=== PATIENT | female | born 1940 | race Caucasian/White ===

== ENCOUNTER 2016-12-07 14:25 | Inpatient (IN) | payer MEDICARE, OTHER ==
[~2016-12-07] VITALS: Ht 170.2 cm; Wt 71.0 kg
[2016-12-07] VITALS (10 sets, daily range): BP systolic 130–227; BP diastolic 67–99; PULSE 60–68; RESP 12–24; TEMP 98.1; O2SAT 95–100
[~2016-12-07 14:25] MED LIST: APIX5TAB PO; DILTCD240 PO; FURO20 PO; LEVO.1 PO; METO100T9 PO; NORC7.5T PO; PRIL40CA PO; ROSU10 PO; SYNT88TA PO; ZOFR4TAB3 SL
[2016-12-07 15:46] LABS: AUTOMATED NEUTROPHIL # 4.1 TH/MM3 (1.8-7.7); BASOPHIL % 0.6 % (0.0-2.0); EOSINOPHIL # 0.2 TH/MM3 (0-0.4); EOSINOPHIL % 3.8 % (0.0-4.0); HEMATOCRIT 39.4 % (35.0-46.0); HEMO FLAGS DIFF FINAL; LYMPH % 12.2 % (9.0-44.0); LYMPHOCYTE # 0.7 TH/MM3 (1.0-4.8); MEAN CELL VOLUME 89.1 FL (80.0-100.0); MEAN CORPUSCULAR HEMOGLOBIN 30.3 PG (27.0-34.0); MONO % 8.7 % (0.0-8.0); NEUT % 74.7 % (16.0-70.0); PLATELET COUNT 172 TH/MM3 (150-450); RED BLOOD COUNT 4.43 MIL/MM3 (4.00-5.30); RED CELL DISTRIBUTION WIDTH 14.2 % (11.6-17.2); WHITE BLOOD COUNT 5.5 TH/MM3 (4.0-11.0)
[2016-12-07 16:10] LABS: ANION GAP 9 MEQ/L (5-15); BICARBONATE 25.4 MEQ/L (21.0-32.0); BLOOD UREA NITROGEN 18 MG/DL (7-18); CHLORIDE 106 MEQ/L (98-107); GLOMERULAR FILTRATION RATE 47 ML/MIN (>89); POTASSIUM 3.9 MEQ/L (3.5-5.1); SODIUM (NA) 140 MEQ/L (136-145)
--- NOTE | 2016-12-07 16:13 | RADRPT ---
EXAM DATE/TIME: 12/07/2016 16:05 [facility] COMPARISON: No previous studies available for comparison. INDICATIONS : Chest pain and shortness of breath for the past few days. MEDICAL HISTORY : Hypertension. SURGICAL HISTORY : Pacemaker. Ablation. ENCOUNTER: Initial ACUITY: 3 days PAIN SCORE: 10/10 LOCATION: Bilateral chest FINDINGS: A left subclavian dual lead pacemaker has its tips in the right atrium and right ventricle. There is no pneumothorax. The heart is normal in size and appearance. The pulmonary vascular pattern is norm al. The lungs are clear. Degenerative changes and scoliosis of the thoracic spine are noted. CONCLUSION: 1. No acute cardiopulmonary disease. 2. Degenerative changes and scoliosis of the thoracolumbar spine. Deion Rivera MD on December 07, 2016 at 16:09 Board Certified Radiologist. This report was verified electronically.
[2016-12-07 16:16] LABS: CREATINE KINASE 85 U/L (26-192)
[2016-12-07] MEDS ORDERED: PANTOPRAZOLE SODIUM 40 MG VIAL IV PUSH ONE (19:30)
[2016-12-07] MEDS ORDERED: ASPIRIN 81 MG CHEW TAB CHEW ONE (19:30)
[2016-12-07] MEDS ORDERED: ONDANSETRON HCL 4 MG/2 ML VIAL IV PUSH ONE (19:30)
[2016-12-07] MEDS ORDERED: SODIUM CHLORID 0.9% 500 ML INJ 500 ML IV ONE (19:30)
[2016-12-07] MEDS ORDERED: NITROGLYCERIN 2% OINT 1 GM PACKET TOPICAL ONE (19:30)
[2016-12-07] MEDS ORDERED: NITROGLYCERIN 0.4 MG SL 25 TABS/BTL SL PRN (19:30)
--- NOTE | 2016-12-07 19:43 | PD ---
HPI Chief Complaint: Chest Pain Time Seen by Provider: 19:18 Travel History International Travel<30 days: No Contact w/Intl Traveler<30days: No Traveled to known affect area: No History of Present Illness HPI The patient is a 76 year old female who presents to the [facility] emergency department with a history of chest pain that began on Tuesday in the left side of her chest and is reportedly a dull aching sensation. The patient reports that it has been associated with shortness of breath and nausea. She reports that she vomited times one and then also brought up acid reflux. The patient reports that the symptoms then resolved, therefore she thought that these symptoms were related to her worsening acid reflux. She reports that she has a history of acid reflux that has been gradually worsening over the last 2 months. She has been taking pantoprazole for it. She reports that her GI is . The patient reports that her last endoscopy was last year. The patient denies having any blood in her stool or black or tarry stools. The patient additionally reports that she does have a history of atrial fibrillation and is status post pacemaker placement. She is on Eliquis for anticoagulation. She denies any history of coronary artery disease. She reports that she has not had any stents or angioplasty done previously. Her last stress test was 2 years ago. 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 The patient reports that her symptoms again recurred at 1 PM today and have been much worse. She again has had nausea and vomiting, however the symptoms have been persistent. She reports having associated shortness of breath and occasional cough. She denies having any new lower extremity edema. She denies having any prior history of congestive heart failure. She denies having any diarrhea. She reports that she had chills on Tuesday and thought she may have a fever but she never checked her temperature. The patient denies any history of neck pain, abdominal pain, diarrhea, urinary symptoms, or neurologic symptoms. [facility] Past Medical History Narrative Medical The patient's past medical history is significant for chronic back pain, history of atrial fibrillation status post pacemaker placement, history of asthma, history of acid reflux, history of hyperthyroidism status post partial thyroidectomy and radiation treatment to her thyroid, history of chronic renal insufficiency, history of hypertension. Blood Disorders: No Heart Rhythm Problems: Yes (states was related to thyroid problems) Cancer: No Cardiovascular Problems: Yes (PACEMAKER) Chest Pain: No COPD: Yes Coronary Artery Disease: Yes Diabetes: No Diminished Hearing: No Endocrine: Yes Gastrointestinal Disorders: No GERD: Yes Glaucoma: No Genitourinary: No Hepatitis: No Hiatal Hernia: Yes Hypertension: Yes Immune Disorder: No Implanted Vascular Access Dvce: No Musculoskeletal: Yes (OSTEOPENA ) Neurologic: No Psychiatric: No Reproductive: No Respiratory: No Integumentary: No Radiation Therapy: Yes (for thyroid) Thyroid Disease: Yes Menopausal: Yes Past Surgical History Narrative Surgical The patient's past surgical history is significant for a partial thyroidectomy, appendectomy, hysterectomy, pacemaker placement. Abdominal Surgery: Yes (APPENDIX REMOVED WITH OVARY REMOVED ) Appendectomy: Yes Cardiac Surgery: Yes (PACE MAKER) Ear Surgery: No Endocrine Surgery: Yes (thyroid) Eye Surgery: No Genitourinary Surgery: No Gynecologic Surgery: Yes (PARTIAL HYSTERECTOMY ) Hysterectomy: Yes Neurologic Surgery: No Oral Surgery: No Pacemaker: Yes (INSERTED JANUARY 26 FOT TEMPORARY, FOR PERMANENT) Thoracic Surgery: Yes (PACEMAKER) Other Surgery: Yes (THYROID,HYSTERECTOMY,APPENDIX, CARDIAC ABLATION) Social History Alcohol Use: No Tobacco Use: No Substance Use: No Allergies-Medications (Allergen,Severity, Reaction): Coded Allergies: Keflex (Verified Allergy, Severe, Nausea/Vomiting, 12/07/16) Sulfa (Verified Allergy, Severe, rash, 12/07/16) Reported Meds & Prescriptions Reported Meds & Active Scripts Active Reported Synthroid (Levothyroxine Sodium) 88 Mcg Tab 88 Mcg PO DAILY Pantoprazole (Pantoprazole Sodium) 40 Mg Tab 40 Mg PO DAILY Metoprolol Succinate ER 24 HR (Metoprolol Succinate) 50 Mg Tab 50 Mg PO DAILY Hydrocodone-Acetaminophen 7.5-325 mg Tab 1 Tab PO Q6H PRN Furosemide 20 Mg Tab 20 Mg PO BID Flecainide (Flecainide Acetate) 50 Mg Tab 50 Mg PO BID Eliquis (Apixaban) 5 Mg Tab 5 Mg PO BID Diltiazem CD 24 HR 240 Mg Caper 240 Mg PO DAILY Crestor (Rosuvastatin Calcium) 40 Mg Tab 40 Mg PO DAILY Review of Systems Except as stated in HPI: all other systems reviewed are Neg General / Constitutional: No: Fever Eyes: No: Visual changes HENT: No: Headaches Cardiovascular: Positive: Chest Pain or Discomfort, Dyspnea on exertion Respiratory: Positive: Cough, Shortness of Breath Gastrointestinal: Positive: Nausea, Vomiting, Indigestion, No: Diarrhea, Abdominal Pain, Loss of Appetite Genitourinary: No: Urgency, Frequency, Dysuria Musculoskeletal: No: Pain Skin: No Rash Neurologic: No: Weakness, Focal Abnormalities, Change in Mentation, Slurred Speech, Sensory Disturbance Psychiatric: No: Depression Endocrine: No: Polydipsia Hematologic/Lymphatic: No: Easy Bruising Physical Exam Narrative General: The patient is a well-developed well-nourished female, uncomfortable appearing on examination, initial blood pressure is elevated at 210/100. Head and Neck exam: Head is normocephalic atraumatic. Eyes: Pupils are equal round and reactive to light. Nose: Midline septum with pink mucous membranes Mouth: Dentition unremarkable. Moist mucus membranes. Posterior oropharynx is not erythematous. No tonsillar hypertrophy. Uvula midline. Airway patent. Neck: No palpable lymphadenopathy. No nuchal rigidity. No thyromegaly. Cardiovascular: Regular rate and rhythm without murmurs, gallops, or rubs. No pulse deficit to the extremities on simultaneous auscultation and palpation of her radial arteries. Lungs: Clear to auscultation bilaterally. No wheezes, rhonchi, or rales. Abdomen: Soft, with midepigastric abdominal discomfort on palpation. No other tenderness on palpation of the other 4 quadrants of the abdomen.. No guarding, rebound, or rigidity. Normal bowel sounds are audible. No tenderness on palpation of McBurney's point. Extremities: No clubbing, cyanosis, or edema. 2+ pulses in all 4 extremities. No calf tenderness on palpation. Back: No spinous process tenderness to palpation. Right-sided CVA tenderness on palpation is noted. Neurologic Exam: Grossly nonfocal. Skin Exam: No rash noted. Intact skin that is warm and dry. Data Data Last Documented VS Vital Signs Date Time Temp Pulse Resp B/P Pulse Ox O2 Delivery O2 Flow Rate FiO2 12/07/16 22:00 60 12 154/67 99 Nasal Cannula 2 12/07/16 14:27 98.1 Orders Electrocardiogram (12/07/16 15:01) Complete Blood Count With Diff (12/07/16 15:01) Basic Metabolic Panel (Bmp) (12/07/16 15:01) Ckmb (Isoenzyme) Profile (12/07/16 15:01) Troponin I (12/07/16 15:01) Chest, Single Ap (12/07/16 15:55) B-Type Natriuretic Peptide (12/07/16 19:30) Hepatic Functional Panel (12/07/16 19:30) Lipase (12/07/16 19:30) D-Dimer (12/07/16 19:30) Iv Access Insert/Monitor (12/07/16 19:30) Ecg Monitoring (12/07/16 19:30) Oximetry (12/07/16 19:30) Creatine Kinase (Cpk) (12/07/16 19:30) Ckmb (Isoenzyme) Profile (12/07/16 19:30) Troponin I (12/07/16 19:30) Aspirin Chew (Aspirin Chew) (12/07/16 19:30) Pantoprazole Inj (Protonix Inj) (12/07/16 19:30) Nitroglycerin 2% Oint (Nitroglycerin 2% (12/07/16 19:30) Nitroglycerin Sl (Nitrostat Sl) (12/07/16 19:30) Ondansetron Inj (Zofran Inj) (12/07/16 19:30) Sodium Chlorid 0.9% 500 Ml Inj (Ns 500 M (12/07/16 19:30) Enalaprilat Inj (Vasotec Inj) (12/07/16 20:45) Us Abdomen Gallbladder (12/07/16 21:18) Morphine Inj (Morphine Inj) (12/07/16 21:45) Admit Order (Ed Use Only) (12/07/16 22:35) Labs Laboratory Tests Test 12/07/16 12/07/16 15:10 19:45 White Blood Count 5.5 TH/MM3 Red Blood Count 4.43 MIL/MM3 Hemoglobin 13.4 GM/DL Hematocrit 39.4 % Mean Corpuscular Volume 89.1 FL Mean Corpuscular Hemoglobin 30.3 PG Mean Corpuscular Hemoglobin 34.0 % Concent Red Cell Distribution Width 14.2 % Platelet Count 172 TH/MM3 Mean Platelet Volume 8.9 FL Neutrophils (%) (Auto) 74.7 % Lymphocytes (%) (Auto) 12.2 % Monocytes (%) (Auto) 8.7 % Eosinophils (%) (Auto) 3.8 % Basophils (%) (Auto) 0.6 % Neutrophils # (Auto) 4.1 TH/MM3 Lymphocytes # (Auto) 0.7 TH/MM3 Monocytes # (Auto) 0.5 TH/MM3 Eosinophils # (Auto) 0.2 TH/MM3 Basophils # (Auto) 0.0 TH/MM3 CBC Comment DIFF FINAL Differential Comment Sodium Level 140 MEQ/L Potassium Level 3.9 MEQ/L Chloride Level 106 MEQ/L Carbon Dioxide Level 25.4 MEQ/L Anion Gap 9 MEQ/L Blood Urea Nitrogen 18 MG/DL Creatinine 1.13 MG/DL Estimat Glomerular Filtration 47 ML/MIN Rate Random Glucose 109 MG/DL Calcium Level 9.2 MG/DL Total Creatine Kinase 85 U/L 93 U/L Troponin I LESS THAN 0.02 LESS THAN 0.02 NG/ML NG/ML D-Dimer Quantitative (PE/DVT) 0.38 MG/L FEU Total Bilirubin 2.0 MG/DL Direct Bilirubin 1.0 MG/DL Indirect Bilirubin 1.0 MG/DL Aspartate Amino Transf 311 U/L (AST/SGOT) Alanine Aminotransferase 466 U/L (ALT/SGPT) Alkaline Phosphatase 187 U/L B-Type Natriuretic Peptide 55 PG/ML Total Protein 7.7 GM/DL Albumin 4.1 GM/DL Lipase 158 U/L [facility] Medical Decision Making Medical Screen Exam Complete: Yes Emergency Medical Condition: Yes Medical Record Reviewed: Yes Interpretation(s) Last Impressions Chest X-Ray 12/07/16 1555 Signed Impressions: Service Date/Time: Wednesday, December 07, 2016 16:05 - CONCLUSION: 1. No acute cardiopulmonary disease. 2. Degenerative changes and scoliosis of the thoracolumbar spine. Deion Rivera MD Differential Diagnosis Acute coronary syndrome, versus pancreatitis, versus acid reflux, versus peptic ulcer disease, versus viral syndrome, versus new-onset congestive heart failure , versus pulmonary embolism Narrative Course During the course of the patients emergency department visit, the patients history, examination, and differential diagnosis were reviewed with the patient. The patient had IV access obtained and blood work sent for analysis. The patient was placed on a foundry operator with oximetry and blood pressure monitoring. An EKG was done on arrival. The patient's EKG reveals a and electronic atrial paced rhythm , heart rate 59, marked left axis deviation, no acute ST segment elevation is noted. T waves are inverted in lead 3 the 1, no acute ST segment depression. The patient was provided normal saline a 500 mL bolus times one. Zofran 4 mg IV , nitroglycerin sublingual every 5 minutes 3 when necessary chest pain, nitroglycerin 1 inch the chest wall. The patient was given a single baby aspirin due to being anticoagulated on Eliquis. The patient was given Protonix 40 mg IV. The patients laboratory studies were reviewed and remarkable for a mildly elevated creatinine in a patient with a history of chronic renal insufficiency, CBC is unremarkable except for left shift, initial set of cardiac enzymes are negative, these were done out front in triage due to a prolonged wait to come back to the emergency department bed. Additional laboratory studies were ordered and addition to a repeat set of cardiac enzymes as it has been over 3 hours since the last set. The patient had liver function tests, lipase, d-dimer , BNP added to her studies. Radiology studies were reviewed and remarkable for a chest x-ray that is unremarkable. Liver function tests were remarkable for an elevated total bilirubin at 2, direct bilirubin revealed 1, AST 311, ALT 466, alkaline phosphatase 187, second set of cardiac enzymes are negative, BNP is 55, lipase 158. D-dimer is 0.38 decreased the likelihood of pulmonary embolism in this patient with no other significant risk factors. The patient's ultrasound revealed evidence of acute cholecystitis. A callout to the general surgeon. I spoke to Dr. Ornelas regarding this. He did agree to see the patient in consultation. The patient will be admitted to the hospitalist for continued evaluation and treatment. The patient was given a dose of clindamycin 900 mg IV times one. The patients results were discussed with the patient, including the plan of care. I explained that further testing and/ or monitoring is indicated based on the patients history, examination, and/ or laboratory findings. Therefore, I recommended admission for additional evaluation. The patient expressed understanding and was agreeable with this plan. The patient was admitted to the hospital in stable condition and sent to a bed under the care of [facility] Hospitalist service. Physician Communication Physician Communication The patient's case will be discussed with the [facility] Hospitalist regarding admission. The patient's case was discussed with Dr. Ornelas at 11: 22 PM. He did agree to see the patient in consultation. The patient's case was also discussed with Dr. Menendez who did agree to admit the patient for further evaluation and treatment at this time. Diagnosis Primary Impression: Chest pain Qualified Code: R07.9 - Chest pain, unspecified type Additional Impressions: Acid reflux Qualified Code: K21.9 - Gastroesophageal reflux disease, esophagitis presence not specified Elevated liver enzymes Acute cholecystitis Admitting Information Admitting Physician Requests: Admit Rebekah Avery MD Dec 07, 2016 19:43
[2016-12-07] MEDS ORDERED: FLEC1TAB8 PO (19:46)
[2016-12-07] MEDS ORDERED: HYDR-3580 PO (19:46)
[2016-12-07] MEDS ORDERED: METO50TA11 PO (19:46)
[2016-12-07] MEDS ORDERED: ROSU40 PO (19:46)
[2016-12-07] MEDS ORDERED: DILT-64 PO (19:46)
[2016-12-07] MEDS ORDERED: SYNT88TA PO (19:46)
[2016-12-07] MEDS ORDERED: PANT40TA3 PO (19:46)
[2016-12-07] MEDS ORDERED: FURO20TA PO (19:46)
[2016-12-07] MEDS ORDERED: APIX5TAB PO (19:46)
[2016-12-07] MEDS ORDERED: ENALAPRILAT 1.25 MG/ML VIAL IV PUSH ONE (20:45)
[2016-12-07 21:00] LABS: ALKALINE PHOSPHATASE 187 U/L (45-117); ALT (GPT) 466 U/L (10-53); AST (GOT) 311 U/L (15-37)
[2016-12-07 21:15] LABS: CREATINE KINASE 93 U/L (26-192)
[2016-12-07] MEDS ORDERED: MORPHINE SULFATE 4 MG/ML INJ IV PUSH ONE (21:45)
--- NOTE | 2016-12-07 23:00 | RADRPT ---
EXAM DATE/TIME: 12/07/2016 22:00 [facility] COMPARISON: No previous studies available for comparison. INDICATIONS : Gallstones. MEDICAL HISTORY : Hypertension. Chronic obstructive pulmonary disease. COA. Dyspnea. Irregular heartbeat. Hiatal malena ia. SURGICAL HISTORY : Appendectomy. Hysterectomy. Pacemaker. ENCOUNTER: Initial ACUITY: 1 day PAIN SCORE: 5/10 LOCATION: Right upper quadrant MEASUREMENTS: LIVER: 13.7 cm length COMMON DUCT: 15 mm RIGHT KIDNEY: 10.8 x 4.8 x 5.0 cm FINDINGS: Gallbladder is distended with several small gallstones or focal areas of sludge. Gallbladder wall upp er limits normal. Trace pericholecystic fluid. There is biliary ductal dilatation within the liver an d in the distal common bile duct to a diameter of 15 mm. Portal venous flow is normal direction. Right kidney unremarkable. No significant free fluid. CONCLUSION: 1. Distended gallbladder with focal areas of sludge or small gallstones and biliary ductal dilatation to 15 mm. Trace pericholecystic fluid. Kevon Mortensen MD on December 07, 2016 at 22:56 Board Certified Radiologist. This report was verified electronically.
[2016-12-07] MEDS ORDERED: CLINDAMYCIN INJ 900 MG in SODIUM CHLORIDE 0.9% INJ 100 ML IV ONE (23:15)
[2016-12-07] MEDS ORDERED: NALOXONE HCL 0.4 MG/ML AMP IV PRN (23:45)
[2016-12-07] MEDS ORDERED: SODIUM CHLORIDE 0.9% FLUSH 5 ML FLUSH FLUSH PRN (23:45)
[2016-12-07] MEDS ORDERED: ONDANSETRON HCL 4 MG/2 ML VIAL IVP PRN (23:45)
[2016-12-08] VITALS (10 sets, daily range): BP systolic 103–166; BP diastolic 58–76; PULSE 58–87; RESP 14–20; TEMP 97.9–98.6; O2SAT 94–99
[2016-12-08 01:46] LABS: CREATINE KINASE 65 U/L (26-192)
[2016-12-08] MEDS: PIPERACIL-TAZO 4.5 GM PREMIX 100 ML IV SCH ×4 (01:49→17:50)
--- NOTE | 2016-12-08 03:52 | HHI.HP ---
[facility] Service [facility] Primary Care Physician Keegan Hansen MD Admission Diagnosis cp ro mi, Elevated liver enzymes Diagnoses: (1) Acute cholecystitis (2) Elevated liver enzymes (3) Chest pain (4) Atrial fibrillation Chief Complaint: epigastric/chest pain Travel History International Travel<30 Days: No Contact w/Intl Traveler <30 Da: No Traveled to Known Affected Are: No History of Present Illness Ms. Song is a 76 year-old female with a past medical history of atrial fibrillation on Eliquis for anticoagulation, hypertension, hyperlipidemia, tachybradycardia syndrome status post permanent dual-chamber pacemaker placement by Dr. Peter on 01/29/2010, partial thyroidectomy at age 19 with radiation treatments in 2009 for hyperthyroidism, gastroesophageal reflux disease, and chronic kidney disease who presented to the ER on 12/07/2016 for evaluation of chest pain/epigastric with associated nausea and vomiting which began on 12/05/2016. CXR negative for acute cardiopulmonary disease. LFTs were noted to be elevated. Gallbladder ultrasound revealed distended gallbladder with focal areas of sludge or small gallstones and biliary ductal dilatation to 15 mm. Trace pericholecystic fluid. The patient is seen in the emergency room. She reports having chest pain/ epigastric pain with vomiting on Tuesday and it resolved after a few hours. It returned yesterday, lasted for 6 hours, and was accompanied by nausea, no vomiting. She denies any fever but reports some chills yesterday. She denies cough or shortness of breath, syncope, palpitations, black or bloody stools, and diarrhea. She complains of chronic muscle aches and back pain - sees Dr. Jade for outpatient pain management. She reports a history of gastroesophageal reflux disease but denies any history of cancer or coronary artery disease. The patient reports a history of nausea and vomiting with anesthesia during prior surgical procedures. telephoto installer is Dr. Prabhu Avery . Review of Systems Constitutional: DENIES: Fever Respiratory: DENIES: Cough, Shortness of breath Cardiovascular: COMPLAINS OF: Chest pain, DENIES: Syncope Gastrointestinal: COMPLAINS OF: Abdominal pain (epigastric pain), Nausea, Vomiting, DENIES: Black stools, Bloody stools, Diarrhea Genitourinary: DENIES: Hematuria, Dysuria Musculoskeletal: COMPLAINS OF: Muscle aches, Back pain Other 10 point review of systems performed; other than what is mentioned in the history of present illness or ROS, systems are otherwise negative Past Family Social History Past Medical History Atrial fibrillation Hypertension Hyperlipidemia Tachybradycardia syndrome status post permanent dual-chamber pacemaker placement Partial thyroidectomy with radiation treatments age 19 Gastroesophageal reflux disease Chronic kidney disease Chronic back pain Asthma Osteopenia . Past Surgical History Permanent dual-chamber pacemaker placement Partial thyroidectomy age 19 Appendectomy Hysterectomy Cardiac Ablation . Reported Medications Reported Meds & Active Scripts Active Reported Synthroid (Levothyroxine Sodium) 88 Mcg Tab 88 Mcg PO DAILY Pantoprazole (Pantoprazole Sodium) 40 Mg Tab 40 Mg PO DAILY Metoprolol Succinate ER 24 HR (Metoprolol Succinate) 50 Mg Tab 50 Mg PO DAILY Hydrocodone-Acetaminophen 7.5-325 mg Tab 1 Tab PO Q6H PRN Furosemide 20 Mg Tab 20 Mg PO BID Flecainide (Flecainide Acetate) 50 Mg Tab 50 Mg PO BID Eliquis (Apixaban) 5 Mg Tab 5 Mg PO BID Diltiazem CD 24 HR 240 Mg Caper 240 Mg PO DAILY Crestor (Rosuvastatin Calcium) 40 Mg Tab 40 Mg PO DAILY . Allergies: Coded Allergies: Keflex (Verified Allergy, Severe, Nausea/Vomiting, 12/07/16) Sulfa (Verified Allergy, Severe, rash, 12/07/16) Active Ordered Medications Current Medications Aspirin (Aspirin Chew) 81 mg ONCE ONCE CHEW Last administered on 12/07/16 19: 40; Start 12/07/16 at 19:30; Stop 12/07/16 at 19:33; Status DC Pantoprazole Sodium (Protonix Inj) 40 mg ONCE ONCE IV PUSH Last administered on 12/07/16 19:41; Start 12/07/16 at 19:30; Stop 12/07/16 at 19:33; Status DC Nitroglycerin (Nitroglycerin 2% Oint) 1 inch ONCE ONCE TOPICAL Last administered on 12/07/16 19:40; Start 12/07/16 at 19:30; Stop 12/07/16 at 19:33; Status DC Nitroglycerin (Nitrostat Sl) 0.4 mg Q5M PRN SL CHEST PAIN; Start 12/07/16 at 19: 30 Ondansetron HCl 4 mg 4 mg ONCE ONCE IV PUSH Last administered on 12/07/16 19: 40; Start 12/07/16 at 19:30; Stop 12/07/16 at 19:33; Status DC Sodium Chloride (NS 500 ml Inj) 500 ml @ 500 mls/hr BOLUS ONCE IV Last administered on 12/07/16 19:41; Start 12/07/16 at 19:30; Stop 12/07/16 at 20:29; Status DC Enalaprilat (Vasotec Inj) 1.25 mg ONCE ONCE IV PUSH Last administered on 21:01; Start 12/07/16 at 20:45; Stop 12/07/16 at 20:46; Status DC Morphine Sulfate 2 mg 2 mg ONCE ONCE IV PUSH Last administered on 12/07/16 21: 45; Start 12/07/16 at 21:45; Stop 12/07/16 at 21:46; Status DC Clindamycin Phosphate/Sodium Chloride (Cleocin Inj/NS Inj) 106 ml @ 212 mls/hr ONCE ONCE IV Last administered on 12/08/16 00:24; Start 12/07/16 at 23:15; Stop 12/07/16 at 23:44; Status DC IV Flush (NS Flush) 2 ml UNSCH PRN FLUSH FLUSH AFTER USING IV ACCESS; Start 12/07/16 at 23:45 IV Flush (NS Flush) 2 ml BID FLUSH ; Start 12/08/16 at 09:00 Ondansetron HCl (Zofran Inj) 4 mg Q6H PRN IVP NAUSEA OR VOMITING; Start at 23:45 Naloxone HCl 0.4 mg 0.4 mg UNSCH PRN IV SEE LABEL COMMENTS; Start 12/07/16 at 23 :45 Piperacillin Sod/ Tazobactam Sod (Zosyn 4.5 Gm Premix) 100 ml @ 200 mls/hr Q6H IV Last administered on 12/08/16 01:49; Start 12/08/16 at 00:00 . Family History Parents with heart disease in their advanced age . Social History Tobacco: Never smoked Alcohol: Denies Illicit Drugs: Denies . Physical Exam Vital Signs Vital Signs Date Time Temp Pulse Resp B/P Pulse Ox O2 Delivery O2 Flow Rate FiO2 12/07/16 23:30 61 14 144/67 95 Nasal Cannula 2 12/07/16 23:00 60 14 154/70 95 Nasal Cannula 2 12/07/16 22:00 60 12 154/67 99 Nasal Cannula 2 12/07/16 21:30 60 12 196/87 99 Nasal Cannula 2 12/07/16 21:01 60 12 191/86 99 Nasal Cannula 2 12/07/16 20:02 60 12 198/90 99 Nasal Cannula 2 12/07/16 19:47 60 12 227/99 100 Nasal Cannula 2 12/07/16 19:39 65 24 100 Nasal Cannula 2 12/07/16 19:39 68 24 201/93 100 Nasal Cannula 2 12/07/16 14:27 98.1 60 12 130/95 97 Room Air Physical Exam GENERAL: This is a well-nourished, well-developed patient, in no apparent distress. SKIN: No rashes, ecchymoses or lesions. Cool and dry. HEAD: Atraumatic. Normocephalic. EYES: No scleral icterus. No injection or drainage. ENT: Nose without bleeding, purulent drainage. NECK: Trachea midline. No JVD or lymphadenopathy. CARDIOVASCULAR: Regular rate and rhythm without murmurs, gallops, or rubs. RESPIRATORY: Clear to auscultation. Breath sounds equal bilaterally. No wheezes , rales, or rhonchi. GASTROINTESTINAL: Abdomen soft, tender, nondistended. No guarding. MUSCULOSKELETAL: Extremities without clubbing, cyanosis, or edema. No calf tenderness. NEUROLOGICAL: Awake and alert. Motor and sensory grossly within normal limits. Normal speech. . Laboratory Laboratory Tests Test 12/07/16 12/07/16 12/08/16 15:10 19:45 00:15 White Blood Count 5.5 Red Blood Count 4.43 Hemoglobin 13.4 Hematocrit 39.4 Mean Corpuscular Volume 89.1 Mean Corpuscular Hemoglobin 30.3 Mean Corpuscular Hemoglobin 34.0 Concent Red Cell Distribution Width 14.2 Platelet Count 172 Mean Platelet Volume 8.9 Neutrophils (%) (Auto) 74.7 Lymphocytes (%) (Auto) 12.2 Monocytes (%) (Auto) 8.7 Eosinophils (%) (Auto) 3.8 Basophils (%) (Auto) 0.6 Neutrophils # (Auto) 4.1 Lymphocytes # (Auto) 0.7 Monocytes # (Auto) 0.5 Eosinophils # (Auto) 0.2 Basophils # (Auto) 0.0 CBC Comment DIFF FINAL Differential Comment Sodium Level 140 Potassium Level 3.9 Chloride Level 106 Carbon Dioxide Level 25.4 Anion Gap 9 Blood Urea Nitrogen 18 Creatinine 1.13 Estimat Glomerular Filtration 47 Rate Random Glucose 109 Calcium Level 9.2 Total Creatine Kinase 85 93 65 Troponin I LESS THAN 0.02 LESS THAN 0.02 LESS THAN 0.02 D-Dimer Quantitative (PE/DVT) 0.38 Total Bilirubin 2.0 Direct Bilirubin 1.0 Indirect Bilirubin 1.0 Aspartate Amino Transf 311 (AST/SGOT) Alanine Aminotransferase 466 (ALT/SGPT) Alkaline Phosphatase 187 B-Type Natriuretic Peptide 55 Total Protein 7.7 Albumin 4.1 Lipase 158 Result Diagram: 12/07/16 1510 12/07/16 1510 Imaging Last Impressions Gall Bladder Ultrasound 12/07/168 Signed Impressions: Service Date/Time: Wednesday, December 07, 2016 22:00 - CONCLUSION: 1. Distended gallbladder with focal areas of sludge or small gallstones and biliary ductal dilatation to 15 mm. Trace pericholecystic fluid. Kevon Mortensen MD Chest X-Ray 12/07/16 1555 Signed Impressions: Service Date/Time: Wednesday, December 07, 2016 16:05 - CONCLUSION: 1. No acute cardiopulmonary disease. 2. Degenerative changes and scoliosis of the thoracolumbar spine. Deion Rivera MD . Assessment and Plan Problem List: (1) Acute cholecystitis ICD Code: K81.0 Status: Acute (2) Elevated liver enzymes ICD Code: R74.8 Status: Acute (3) Chest pain ICD Code: R07.9 Status: Acute (4) Atrial fibrillation ICD Code: I48.91 Status: Acute Assessment and Plan Acute cholecystitis Elevated LFTs - Dr. Ornelas was consulted and recommended admission - Total bilirubin 2.0, direct bilirubin 1.0, indirect bilirubin 1.0, AST 311, ALT 466, alkaline phosphatase 187 - Zosyn 4.5 g IV every 6 hours - Zofran 4 mg IV every 6hours when necessary for nausea and vomiting Atypical chest pain - Serial EKGs and cardiac enzymes to rule out ACS - Continuous cardiac telemetry to monitor for arrhythmia - Vital signs every 4 hours Atrial fibrillation - hold Eliquis - recommend x 48 hours prior to surgery - patient took last dose 12/07/16 in a.m. - start heparin drip in interim - hold two hours prior to surgery - Continue home Cardizem and metoprolol with hold parameters - Patient sees Dr. Prabhu Avery as an outpatient. Consult if needed. DVT prophylaxis - heparin gtt for now Written by Dulce Oliveira, acting as scribe for Dr. Menendez on 12/08/16 at 03:52. The documentation accurately reflects the work performed [id number] by me on at [id number] . Discussed Condition With patient, ER physician, and RN Physician Certification 2 Midnight Certification Type: Admission for Inpatient Services Order for Inpatient Services The services are ordered in accordance with Medicare regulations or non- Medicare payer requirements, as applicable. In the case of services not specified as inpatient-only, they are appropriately provided as inpatient services in accordance with the 2-midnight benchmark. Estimated LOS (days): 3 days is the estimated time the patient will need to remain in the hospital, assuming treatment plan goals are met and no additional complications. Post-Hospital Plan: Not yet determined Problem Qualifiers (1) Chest pain: Qualified Code: R07.9 - Chest pain, unspecified type Dulce Oliveira Dec 08, 2016 03:52 Vikas Mneendez MD Dec 08, 2016 07:52
[2016-12-08 04:50] LABS: AUTOMATED NEUTROPHIL # 3.7 TH/MM3 (1.8-7.7); BASOPHIL % 0.4 % (0.0-2.0); EOSINOPHIL # 0.2 TH/MM3 (0-0.4); EOSINOPHIL % 3.5 % (0.0-4.0); HEMATOCRIT 34.1 % (35.0-46.0); HEMO FLAGS DIFF FINAL; LYMPH % 13.1 % (9.0-44.0); LYMPHOCYTE # 0.7 TH/MM3 (1.0-4.8); MEAN CELL VOLUME 89.5 FL (80.0-100.0); MEAN CORPUSCULAR HEMOGLOBIN 29.8 PG (27.0-34.0); MEAN CORPUSCULAR HGB CONC 33.3 % (32.0-36.0); MONO % 11.3 % (0.0-8.0); NEUT % 71.7 % (16.0-70.0); PLATELET COUNT 137 TH/MM3 (150-450); RED BLOOD COUNT 3.81 MIL/MM3 (4.00-5.30); RED CELL DISTRIBUTION WIDTH 14.7 % (11.6-17.2); WHITE BLOOD COUNT 5.1 TH/MM3 (4.0-11.0)
[2016-12-08 05:00] LABS: APTT (PATIENT) 34.3 SEC (24.3-30.1); INTERNATIONAL NORMALIZED RATIO 1.1 RATIO; PROTHROMBIN TIME - PATIENT 11.8 SEC (9.8-11.6)
[2016-12-08 05:06] LABS: ALT (GPT) 463 U/L (10-53); ANION GAP 9 MEQ/L (5-15); AST (GOT) 328 U/L (15-37); BLOOD UREA NITROGEN 16 MG/DL (7-18); CHLORIDE 109 MEQ/L (98-107); GLOMERULAR FILTRATION RATE 47 ML/MIN (>89); POTASSIUM 3.8 MEQ/L (3.5-5.1); SODIUM (NA) 143 MEQ/L (136-145)
[2016-12-08 05:15] LABS: ALKALINE PHOSPHATASE 159 U/L (45-117); TOTAL BILIRUBIN ADULT 2.5 MG/DL (0.2-1.0)
[2016-12-08] MEDS: HEPARIN-D5W INJ 250 ML IV SCH ×2 (05:37→15:43)
[2016-12-08] MEDS: LEVOTHYROXINE SODIUM 88 MCG TAB PO SCH (06:33)
[2016-12-08] MEDS: FLECAINIDE ACETATE 100 MG TAB PO SCH ×2 (08:55→22:43)
[2016-12-08] MEDS: METOPROLOL SUCCINATE 50 MG EXTENDED RELEASE TAB PO SCH (08:55)
[2016-12-08] MEDS: DILTIAZEM-CD 240 MG CAP ER PO SCH (08:55)
[2016-12-08] MEDS: FUROSEMIDE 20 MG TAB PO SCH ×2 (08:56→22:44)
[2016-12-08] MEDS: PANTOPRAZOLE SOD 40 MG DELAYED RELEASE TAB PO SCH (08:56)
[2016-12-08] MEDS: ATORVASTATIN 40 MG TAB PO SCH (08:56)
[2016-12-08] MEDS: SODIUM CHLORIDE 0.9% FLUSH 5 ML FLUSH FLUSH SCH ×2 (08:58→22:44)
[2016-12-08] MEDS ORDERED: PANTOPRAZOLE SOD 40 MG DELAYED RELEASE TAB PO SCH (09:00)
--- NOTE | 2016-12-08 09:57 | HHI.PR ---
Subjective Remarks Patient states that she has no further abdominal pain. No nausea or vomiting. No complaint chest pain palpitations. Objective Vitals Vital Signs Date Time Temp Pulse Resp B/P Pulse Ox O2 Delivery O2 Flow Rate FiO2 12/08/16 07:27 17 99 Room Air 12/08/16 07:27 60 17 98 12/08/16 07:27 98.6 60 17 114/60 98 Room Air 12/08/16 07:00 59 16 103/59 97 Room Air 12/08/16 06:00 61 14 123/65 97 Nasal Cannula 2 12/08/16 02:00 60 14 121/58 97 Nasal Cannula 2 12/07/16 23:30 61 14 144/67 95 Nasal Cannula 2 12/07/16 23:00 60 14 154/70 95 Nasal Cannula 2 12/07/16 22:00 60 12 154/67 99 Nasal Cannula 2 12/07/16 21:30 60 12 196/87 99 Nasal Cannula 2 12/07/16 21:01 60 12 191/86 99 Nasal Cannula 2 12/07/16 20:02 60 12 198/90 99 Nasal Cannula 2 12/07/16 19:47 60 12 227/99 100 Nasal Cannula 2 12/07/16 19:39 65 24 100 Nasal Cannula 2 12/07/16 19:39 68 24 201/93 100 Nasal Cannula 2 12/07/16 14:27 98.1 60 12 130/95 97 Room Air Result Diagram: 12/08/16 0430 12/08/16 043 Other Results Item Value Date Time Total Bilirubin 2.5 MG/DL H 12/08/16 0430 Aspartate Amino Transf (AST/SGOT) 328 U/L H 12/08/16 0430 Alanine Aminotransferase (ALT/SGPT) 463 U/L H 12/08/16 0430 Alkaline Phosphatase 159 U/L H 12/08/16 0430 Total Protein 5.8 GM/DL L # 12/08/16 0430 Albumin 3.0 GM/DL L # 12/08/16 0430 Objective Remarks GENERAL: This is a well-nourished, well-developed patient, in no apparent distress. CARDIOVASCULAR: Regular rate and irregular rhythm RESPIRATORY: Clear to auscultation. Breath sounds equal bilaterally. No wheezes , rales, or rhonchi. GASTROINTESTINAL: Abdomen soft, obese, mild right upper quadrant tenderness on palpation with no guarding or rebound, negative Mccollum sign nondistended. Normal, active bowel sounds MUSCULOSKELETAL: Extremities without clubbing, cyanosis, trace edema NEURO: Alert & Oriented x4 to person, place, time, situation. Moves all ext x4 A/P Problem List: (1) Acute cholecystitis ICD Code: K81.0 Status: Acute (2) Elevated liver enzymes ICD Code: R74.8 Status: Acute (3) Chest pain ICD Code: R07.9 Status: Acute (4) Atrial fibrillation ICD Code: I48.91 Status: Chronic Assessment and Plan Acute cholecystitis Elevated hepatic function tests due to acute cholecystitis - Dr. Ornelas was consulted and recommended admission for surgical intervention evaluation -Continue pain control. - Zosyn 4.5 g IV every 6 hours - Zofran 4 mg IV every 6hours when necessary for nausea and vomiting Atypical chest pain likely due to acute cholecystitis - Serial EKGs and cardiac enzymes to rule out ACS has been negative - Continuous cardiac telemetry to monitor for arrhythmia Atrial fibrillation, chroniccurrently right stable - hold Eliquis - recommend x 48 hours prior to surgery - patient took last dose 12/07/16 in a.m. - start heparin drip in interim for overlap- hold two hours prior to surgery - Continue home Cardizem and metoprolol with hold parameters for rate control - Patient sees Dr. Prabhu Avery as an outpatient. Consult cardiology if needed. DVT prophylaxis - heparin drip Discharge Planning Per Clinical progression and surgical evaluation. Problem Qualifiers (1) Chest pain: Qualified Code: R07.9 - Chest pain, unspecified type (2) Atrial fibrillation: Qualified Code: I48.2 - Chronic atrial fibrillation Seema Gallegos MD Dec 08, 2016 09:57
[2016-12-08 12:02] LABS: APTT (PATIENT) GREATER THAN 153.4 SEC (24.3-30.1)
[2016-12-08 15:27] LABS: APTT (PATIENT) 73.8 SEC (24.3-30.1)
--- NOTE | 2016-12-08 19:05 | EKG ---
Date Performed: 12/08/2016 Time Performed: 00:21:56 PTAGE: 76 years EKG: ELECTRONIC ATRIAL PACEMAKER BORDERLINE LEFT AXIS DEVIATION NONSPECIFIC T-WAVE ABNORMALITY A BNORMAL RHYTHM ECG PREVIOUS TRACING : 12/07/2016 15.05 Compared to prior tracing no significant change DOCTOR: Thomas Shaver Interpretating Date/Time 12/08/2016 19:05:27
--- NOTE | 2016-12-08 20:09 | MB ---
cc: JAYLYN GEE MD,HIEU RIDER,KEISHA YBARRA M.D., M.D. DATE OF CONSULTATION: 12/08/2016 REASON FOR CONSULTATION Cholelithiasis, cholecystitis. HISTORY This is a pleasant 76-year-old female who has had on and off abdominal pain. At times she did not realize she was having biliary colic type symptoms but this pain was unrelenting, came into the emergency room where she was evaluated by Dr. Rebekah Avery. She had some chest pain that began on Tuesday but looking back it was probably the start of her biliary colic type symptoms. Her cardiac workup was negative at that time. She sees Dr. Hieu Avery. She also sees Dr. Gm Rider. She was then worked up here in the emergency room and was found to have a swollen gallbladder on imaging. Plans were made for admission by the medical service because of her Eliquis and other medical issues. Consultation was placed for surgery for surgical opinion and management. PAST MEDICAL HISTORY: 1. Atrial fibrillation. 2. Pacemaker. 3. COPD. 4. Reflux. She was told she had a hiatal hernia. 5. Appendectomy in the past. 6. Partial hysterectomy. 7. Thyroid surgery. 8. Radiation for thyroid as well. ALLERGIES: ALLERGIC TO KEFLEX AND SULFA. MEDICATIONS: 1. Eliquis 2. Diltiazem 3. Flecainide 4. Lasix 5. Lortab 6. Synthroid 7. Metoprolol. 8. Protonix 9. Crestor. PHYSICAL EXAMINATION: She is sitting in bed, looks fairly comfortable. Neck: Supple without carotid bruits. Chest: Clear. Heart: Atrial fibrillation. She has a pacer in the left chest wall. Abdomen: Thin, soft. Mild soreness right upper quadrant with deep palpation. No masses are appreciated. Extremities: No clubbing, cyanosis or edema. Neurologic: She is alert, oriented without focal deficits. LABORATORY DATA She had a white count 5, H&H 11 and 34. Her he H&H was 13 and 39 on December 07. Chemistry shows elevated liver enzymes with a total bilirubin 2.5, AST at 328, ALT of 463, alk phos of 159. Her troponin level was less than 0.82. Chemistry is essentially normal with a creatinine 1.1, which is slightly elevated from historical values. IMAGING STUDIES She had an ultrasound which showed gallstones with some swelling in the gallbladder. Since being in the hospital she has been started on heparin drip. She has been off her Eliquis. Her last dose of Eliquis was on 12/07, so we will wait until Tuesday to plan surgical intervention as long as her clinical condition tolerates. ASSESSMENT An elderly female on Eliquis for atrial fibrillation with a pacer with cholelithiasis, cholecystitis. PLAN Laparoscopic cholecystectomy. After appropriate time off the Eliquis with bridging of the heparin, will stop the heparin the morning before her surgery. I discussed with the patient in detail. She appeared to understand. MD Westley KingDB/JEFF /5:06 PM /7:10 PM
[2016-12-08 22:00] LABS: APTT (PATIENT) 83.7 SEC (24.3-30.1)
--- NOTE | 2016-12-08 22:46 | EKG ---
Date Performed: 12/07/2016 Time Performed: 15:05:45 PTAGE: 76 years EKG: ELECTRONIC ATRIAL PACEMAKER MARKED LEFT AXIS DEVIATION MODERATE VOLTAGE CRITERIA FOR LVH, C ONSIDER NORMAL VARIANT NONSPECIFIC T-WAVE ABNORMALITY ABNORMAL ECG PREVIOUS TRACING : 11/19/2011 06.00 Compared to the previous tracing, previously normal Sinus rhythm DOCTOR: Thomas Shaver Interpretating Date/Time 12/08/2016 22:45:23
[2016-12-09] VITALS (7 sets, daily range): BP systolic 115–139; BP diastolic 62–75; PULSE 57–78; RESP 16–20; TEMP 97.9–98.2; O2SAT 93–96
[2016-12-09 04:57] LABS: INDIRECT BILIRUBIN 0.9 MG/DL (0.0-0.8); TOTAL BILIRUBIN ADULT 1.4 MG/DL (0.2-1.0)
[2016-12-09 06:23] LABS: APTT (PATIENT) 122.8 SEC (24.3-30.1)
[2016-12-09] MEDS: PIPERACIL-TAZO 4.5 GM PREMIX 100 ML IV SCH ×3 (06:42→12:00)
[2016-12-09] MEDS: LEVOTHYROXINE SODIUM 88 MCG TAB PO SCH (06:42)
[2016-12-09] MEDS: DILTIAZEM-CD 240 MG CAP ER PO SCH (08:50)
[2016-12-09] MEDS: FUROSEMIDE 20 MG TAB PO SCH ×2 (08:50→20:37)
[2016-12-09] MEDS: METOPROLOL SUCCINATE 50 MG EXTENDED RELEASE TAB PO SCH (08:52)
[2016-12-09] MEDS: FLECAINIDE ACETATE 100 MG TAB PO SCH ×2 (08:52→20:39)
[2016-12-09] MEDS: ATORVASTATIN 40 MG TAB PO SCH (08:53)
[2016-12-09] MEDS: PANTOPRAZOLE SOD 40 MG DELAYED RELEASE TAB PO SCH (08:54)
[2016-12-09] MEDS: SODIUM CHLORIDE 0.9% FLUSH 5 ML FLUSH FLUSH SCH ×2 (08:55→20:33)
[2016-12-09 12:01] LABS: APTT (PATIENT) 44.7 SEC (24.3-30.1)
--- NOTE | 2016-12-09 12:34 | HHI.PR ---
Subjective Remarks Reports that abdominal pain better. Tolerating diet with no vomiting. Objective Vitals Vital Signs Date Time Temp Pulse Resp B/P Pulse Ox O2 Delivery O2 Flow Rate FiO2 12/09/16 12:06 100 Room Air 12/09/16 08:00 97.9 59 20 139/75 94 12/09/16 05:12 59 12/09/16 04:55 Room Air 12/09/16 04:55 98.0 57 16 130/70 93 12/08/16 23:00 Room Air 12/08/16 23:00 98.1 58 16 162/76 94 12/08/16 21:15 59 12/08/16 19:32 97.9 60 16 150/73 94 12/08/16 19:32 Room Air 12/08/16 13:06 98.1 60 20 166/70 96 12/08/16 12:28 98.0 86 17 132/67 99 I/O 12/08/16 12/08/16 12/08/16 12/09/16 12/09/16 12/09/16 07:00 15:00 23:00 07:00 15:00 23:00 Intake Total 659 ml 308 ml Output Total 1 ml 900 ml Balance 658 ml -592 ml Intake Oral 480 ml 30 ml IV Total 179 ml 278 ml Output Urine Total 900 ml Stool Total 1 ml # Voids 2 # Bowel Movements 0 Result Diagram: 12/08/16 04312/08/16 043 Other Results Item Value Date Time Total Bilirubin 1.4 MG/DL H 12/09/166 Aspartate Amino Transf (AST/SGOT) 140 U/L H 12/09/166 Alanine Aminotransferase (ALT/SGPT) 364 U/L H 12/09/16 0416 Alkaline Phosphatase 157 U/L H 12/09/166 Total Protein 6.5 GM/DL # 12/09/16 0416 Albumin 3.3 GM/DL L 12/09/16415 Objective Remarks GENERAL: This is a well-nourished, well-developed patient, in no apparent distress. CARDIOVASCULAR: Regular rate and irregular rhythm RESPIRATORY: Clear to auscultation. Breath sounds equal bilaterally. No wheezes , rales, or rhonchi. GASTROINTESTINAL: Abdomen soft, obese, mild right upper quadrant tenderness on palpation with no guarding or rebound, negative Mccollum sign nondistended. Normal, active bowel sounds MUSCULOSKELETAL: Extremities without clubbing, cyanosis, trace edema NEURO: Alert & Oriented x4 to person, place, time, situation. Moves all ext x4 A/P Problem List: (1) Acute cholecystitis ICD Code: K81.0 Status: Acute (2) Elevated liver enzymes ICD Code: R74.8 Status: Acute (3) Chest pain ICD Code: R07.9 Status: Acute (4) Atrial fibrillation ICD Code: I48.91 Status: Chronic Assessment and Plan Acute cholecystitis Elevated hepatic function tests due to acute cholecystitis - Dr. Ornelas recommend as surgical intervention is scheduled for tomorrow morning. I discussed with Dr. Ornelas considering management of her anticoagulation for her chronic atrial fibrillation. At this time we had stopped her home Eliquis and currently on IV heparin since admission. Will hold the heparin at midnight for surgical intervention -Continue pain control. - Zosyn 4.5 g IV every 6 hours - Zofran 4 mg IV every 6hours when necessary for nausea and vomiting Atypical chest pain likely due to acute cholecystitis - Serial EKGs and cardiac enzymes to rule out ACS has been negative - Continuous cardiac telemetry to monitor for arrhythmia Atrial fibrillation, chroniccurrently right stable - hold Eliquis - recommend x 48 hours prior to surgery - patient took last dose 12/07/16 in a.m. - start heparin drip in interim for overlap- hold prior to surgery - Continue home Cardizem and metoprolol with hold parameters for rate control - Patient sees Dr. Prabhu Avery as an outpatient. Consult cardiology if needed. DVT prophylaxis - heparin drip Discharge Planning Per Clinical progression and home after surgical clearance Problem Qualifiers (1) Chest pain: Qualified Code: R07.9 - Chest pain, unspecified type (2) Atrial fibrillation: Qualified Code: I48.2 - Chronic atrial fibrillation Seema Gallegos MD Dec 09, 2016 12:34
--- NOTE | 2016-12-09 17:36 | HHI.PR ---
Subjective Subjective Notes DAILY PROGRESS NOTE FOR SURGICAL ATTENDING, DR. KEISHA ORNELAS Discussed with family at bedside and the patient about left upper cholecystectomy Patient ready All questions answered Objective Vitals/I&O Vital Signs Date Time Temp Pulse Resp B/P Pulse Ox O2 Delivery O2 Flow Rate FiO2 12/09/16 12:06 100 Room Air 12/09/16 12:00 98.0 60 20 115/62 12/08/16 06:00 2 Labs Laboratory Tests Test 12/08/16 12/09/16 12/09/16 12/09/16 20:53 04:16 05:31 11:25 Activated Partial 83.7 122.8 44.7 Thromboplast Time Total Bilirubin 1.4 Direct Bilirubin 0.5 Indirect Bilirubin 0.9 Aspartate Amino Transf 140 (AST/SGOT) Alanine Aminotransferase 364 (ALT/SGPT) Alkaline Phosphatase 157 Total Protein 6.5 Albumin 3.3 Radiology Last Impressions Gall Bladder Ultrasound 12/07/16 9468 Signed Impressions: Service Date/Time: Wednesday, December 07, 2016 22:00 - CONCLUSION: 1. Distended gallbladder with focal areas of sludge or small gallstones and biliary ductal dilatation to 15 mm. Trace pericholecystic fluid. Keisha Mortensen MD Chest X-Ray 12/07/16 5495 Signed Impressions: Service Date/Time: Wednesday, December 07, 2016 16:05 - CONCLUSION: 1. No acute cardiopulmonary disease. 2. Degenerative changes and scoliosis of the thoracolumbar spine. Deion Rivera MD Cardiovascular: Irregular, Other (patient has pacer) Lungs: Clear Abdomen: Non-tender (deep palpation) Extremities: No edema A/P Problem List: (1) Acute cholecystitis (2) Chest pain (3) Elevated liver enzymes (4) Atrial fibrillation (5) Cardiac pacemaker (6) Current use of manager intermediate anticoagulation Plan: Patient has been on Xarelto converted to heparin Assessment and Plan 76-year-old female with episode of gallstone pancreatitis is on long-term anticoagulation she's been converted to heparin which will be stopped at midnight tonight Problem Qualifiers (1) Chest pain: Qualified Code: R07.9 - Chest pain, unspecified type (2) Atrial fibrillation: Qualified Code: I48.2 - Chronic atrial fibrillation Keisha Ornelas MD Dec 09, 2016 17:35
[2016-12-09 23:28] LABS: APTT (PATIENT) 43.9 SEC (24.3-30.1)
[2016-12-10] VITALS (7 sets, daily range): BP systolic 127–149; BP diastolic 58–73; PULSE 59–65; RESP 16–20; TEMP 97.2–98.2; O2SAT 94–100
[2016-12-10] MEDS: PIPERACIL-TAZO 4.5 GM PREMIX 100 ML IV SCH ×5 (00:10→23:52)
[2016-12-10] MEDS ORDERED: INSULIN HUMAN REGULAR 1,000 UNITS/10 ML VIAL SQ PRN (04:30)
[2016-12-10] MEDS: LEVOTHYROXINE SODIUM 88 MCG TAB PO SCH (05:17)
[2016-12-10 07:07] LABS: INDIRECT BILIRUBIN 0.7 MG/DL (0.0-0.8)
[2016-12-10] MEDS ORDERED: BUPIVACAINE/EPINEPHRINE 0.25% PF 30 ML VIAL ONE (08:06)
[2016-12-10] MEDS: ATORVASTATIN 40 MG TAB PO SCH (08:33)
[2016-12-10] MEDS: DILTIAZEM-CD 240 MG CAP ER PO SCH (08:33)
[2016-12-10] MEDS: PANTOPRAZOLE SOD 40 MG DELAYED RELEASE TAB PO SCH (08:33)
[2016-12-10] MEDS: FUROSEMIDE 20 MG TAB PO SCH ×2 (08:33→20:42)
[2016-12-10] MEDS: METOPROLOL SUCCINATE 50 MG EXTENDED RELEASE TAB PO SCH (08:34)
[2016-12-10] MEDS: FLECAINIDE ACETATE 100 MG TAB PO SCH ×2 (08:35→20:42)
[2016-12-10] MEDS: SODIUM CHLORIDE 0.9% FLUSH 5 ML FLUSH FLUSH SCH ×2 (08:40→20:39)
--- NOTE | 2016-12-10 10:35 | HHI.PR ---
Subjective Remarks Follow-up visit acute cholecystitis, A. fib. Patient seen today. States improved abdominal pain. Complains of slight nausea, but was given some nausea medication and she was doing well. Concerns regarding anesthesia use as she has previously gotten "sick" - nausea vomiting postanesthesia use. States she is feverish, but her temp has been 98. Otherwise, denies pain and discomfort. Denies SOB/ dyspnea. Denies chest pain, palpitations, headaches, dizziness. Denies chills, v/d. Objective Vitals Vital Signs Date Time Temp Pulse Resp B/P Pulse Ox O2 Delivery O2 Flow Rate FiO2 12/10/16 08:00 98.0 60 16 140/73 96 12/10/16 04:42 98.2 65 16 132/60 94 12/10/16 00:22 98.0 59 16 149/73 95 12/09/16 20:00 Room Air 12/09/16 19:39 97.9 60 16 126/67 96 12/09/16 16:00 98.2 60 18 129/72 93 12/09/16 12:06 100 Room Air 12/09/16 12:00 98.0 60 20 115/62 94 I/O 12/09/16 12/09/16 12/09/16 12/10/16 12/10/16 12/10/16 07:00 15:00 23:00 07:00 15:00 23:00 Intake Total 308 ml 480 ml 270 ml 0 ml Output Total 900 ml 700 ml 1000 ml Balance -592 ml 480 ml -430 ml -1000 ml Intake Oral 30 ml 480 ml 270 ml 0 ml IV Total 278 ml Output Urine Total 900 ml 700 ml 1000 ml # Voids 3 # Bowel Movements 0 1 1 0 Result Diagram: 12/08/16 0430 12/08/16 0430 Imaging Last Impressions Gall Bladder Ultrasound 12/07/168 Signed Impressions: Service Date/Time: Wednesday, December 07, 2016 22:00 - CONCLUSION: 1. Distended gallbladder with focal areas of sludge or small gallstones and biliary ductal dilatation to 15 mm. Trace pericholecystic fluid. Kevon Mortensen MD Chest X-Ray 12/07/16 1555 Signed Impressions: Service Date/Time: Wednesday, December 07, 2016 16:05 - CONCLUSION: 1. No acute cardiopulmonary disease. 2. Degenerative changes and scoliosis of the thoracolumbar spine. Deion Rivera MD Objective Remarks GENERAL: This is a well-nourished, well-developed patient, in no apparent distress. HEENT: Normocephalic. Pupils equal round and reactive. Nose without bleeding. Airway patent. NECK: Trachea midline. No JVD. Supple. CARDIOVASCULAR: Regular rate and rhythm without murmurs, gallops, or rubs. RESPIRATORY: Clear to auscultation. Breath sounds equal bilaterally. No wheezes , rales, or rhonchi. GASTROINTESTINAL: Abdomen soft, mild tenderness right upper quadrant, nondistended. Bowel Sounds normoactive x4. MUSCULOSKELETAL: Extremities without clubbing, cyanosis, or edema. NEUROLOGICAL: Awake and alert. Oriented x 3. No focal neuro deficit. LEVIN. Normal speech. Medications and IVs Current Medications Medications (Trade) Dose Ordered Sig/Amara Route Start Time Stop Time Status Last Admin (Nitrostat Sl) 0.4 mg Q5M PRN SL 12/07/16 19:30 (NS Flush) 2 ml UNSCH PRN FLUSH 12/07/16 23:45 (NS Flush) 2 ml BID FLUSH 12/08/16 09:00 12/10/16 08:40 (Zofran Inj) 4 mg Q6H PRN IVP 12/07/16 23:45 Naloxone HCl 0.4 mg 0.4 mg UNSCH PRN IV 12/07/16 23:45 (Zosyn 4.5 Gm Premix) 100 ml @ 200 mls/hr Q6H IV 12/08/16 00:00 12/10/16 12:18 (Cardizem Cd) 240 mg DAILY PO 12/08/16 09:00 12/10/16 08:33 (Tambocor) 50 mg BID PO 12/08/16 09:00 12/10/16 08:35 (Lasix) 20 mg BID PO 12/08/16 09:00 12/10/16 08:33 (Synthroid) 88 mcg DAILY@06 PO 12/08/16 06:00 12/10/16 05:17 (Toprol Xl) 50 mg DAILY PO 12/08/16 09:00 12/10/16 08:34 (Protonix) 40 mg DAILY PO 12/08/16 09:00 12/10/16 08:33 Atorvastatin Calcium 80 mg 80 mg DAILY PO 12/08/16 09:00 12/10/16 08:33 Lactated Ringer's 1,000 ml @ 30 mls/hr Q24H IV 12/10/16 11:00 (NS 500 ml Inj) 500 ml @ 30 mls/hr [id number] IV 12/10/16 11:00 12/11/16 10:59 A/P Problem List: (1) Acute cholecystitis ICD Code: K81.0 Status: Acute (2) Elevated liver enzymes ICD Code: R74.8 Status: Acute (3) Chest pain ICD Code: R07.9 Status: Acute (4) Atrial fibrillation ICD Code: I48.91 Status: Chronic Assessment and Plan Patient is a 76-year-old white female who came in to the hospital with complaints of chest pain/epigastric pain associated with nausea and vomiting that began on 12/05/2016. CXR negative for acute cardiopulmonary disease. LFTs were noted to be elevated. Gallbladder ultrasound revealed distended gallbladder with focal areas of sludge or small gallstones and biliary ductal dilatation to 15 mm. Trace pericholecystic fluid. Acute cholecystitis - Elevated hepatic function tests due to acute cholecystitis. LFTs improving, trending down - Dr. Ornelas recommend as surgical intervention is scheduled for tomorrow morning. I discussed with Dr. Ornelas considering management of her anticoagulation for her chronic atrial fibrillation. At this time we had stopped her home Eliquis and currently on IV heparin since admission. Heparin was held at midnight for surgery today. - Continue pain control. - Zosyn 4.5 g IV every 6 hours - Zofran 4 mg IV every 6hours when necessary for nausea and vomiting. Relief with Zofran Atypical chest pain likely due to acute cholecystitis - Serial EKGs and cardiac enzymes to rule out ACS has been negative - Continuous cardiac telemetry to monitor for arrhythmia Atrial fibrillation, chroniccurrently right stable - hold Eliquis - recommend x 48 hours prior to surgery - patient took last dose 12/07/16 in a.m. -On heparin drip in interim for overlap - held prior to surgery - Continue home Cardizem and metoprolol with hold parameters for rate control - Patient sees Dr. Prabhu Avery as an outpatient. Consult cardiology if needed. DVT prophylaxis - heparin drip, held prior to surgery Discussed with patient, RN Written by Michell Trujillo, acting as scribe for Dr. Bess on 12/10/16 at 08:34. Discharge Planning For surgical intervention today. Possible discharge tomorrow if cleared by surgery. Attending Statement The documentation accurately reflects the work performed [id number] by me on at 08:34. Problem Qualifiers (1) Chest pain: Qualified Code: R07.9 - Chest pain, unspecified type (2) Atrial fibrillation: Qualified Code: I48.2 - Chronic atrial fibrillation Michell Zuniga Dec 10, 2016 10:35 Timothy Bess DO Dec 10, 2016 14:39
[2016-12-10] MEDS: LACTATED RINGER'S 1000 ML IV SCH (11:00)
[2016-12-10] MEDS: SODIUM CHLORID 0.9% 500 ML IV SCH (11:00)
[2016-12-10] MEDS ORDERED: ONDANSETRON HCL 4 MG/2 ML VIAL IV PUSH ONE (12:00)
[2016-12-10] MEDS ORDERED: LACTATED RINGER'S 1000 ML INJ 1,000 ML IV ONE (12:00)
[2016-12-10] MEDS ORDERED: PROPOFOL 200 MG/20 ML AMP IV ONE (12:00)
[2016-12-10] MEDS ORDERED: ePHEDrine/NS 25 MG/5 ML SYR IV ONE (12:00)
[2016-12-10] MEDS ORDERED: NEOSTIGMINE 3 MG/3 ML SYR IV ONE (12:00)
[2016-12-10] MEDS ORDERED: PHENYLEPH/NS 1000 MCG/10 ML SYR IV ONE (12:00)
[2016-12-10] MEDS ORDERED: SCOPOLAMINE 1.5 MG PATCH ONE (12:43)
[2016-12-10] MEDS ORDERED: FAMOTIDINE 20 MG/2 ML VIAL ONE (12:43)
[2016-12-10] MEDS ORDERED: DICLOFENAC SODIUM 37.5 MG/ML VIAL IV PUSH ONE (13:37)
[2016-12-10] MEDS ORDERED: fentaNYL CITRATE 250 MCG/5 ML AMP ONE (14:41)
--- NOTE | 2016-12-10 14:56 | HHI.PR ---
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
[2016-12-10] MEDS ORDERED: NORC5TAB PO (14:57)
[2016-12-10] MEDS ORDERED: DO NOT ADM ANY ANTICOAGULANT DRUGS XX PRN (15:15)
[2016-12-10] MEDS ORDERED: ACETAMINOPHEN/HYDROcodone 325 MG/5 MG TAB PO PRN (16:45)
[2016-12-10] MEDS ORDERED: ONDANSETRON HCL 4 MG/2 ML VIAL IV PRN (16:45)
[2016-12-10] MEDS: ACETAMINOPHEN INJ 100 ML IV SCH ×2 (17:46→23:52)
[2016-12-11] MEDS: SODIUM CHLORID 0.9% 500 ML IV SCH (03:40)
[2016-12-11 04:48] VITALS: BP 142/66; PULSE 60; RESP 16; TEMP 98.1; O2SAT 97
[2016-12-11] MEDS: ACETAMINOPHEN INJ 100 ML IV SCH ×2 (06:00→12:00)
[2016-12-11] MEDS: PIPERACIL-TAZO 4.5 GM PREMIX 100 ML IV SCH ×2 (06:13→13:03)
[2016-12-11] MEDS: LEVOTHYROXINE SODIUM 88 MCG TAB PO SCH (06:13)
[2016-12-11 08:09] LABS: HEMATOCRIT 38.1 % (35.0-46.0); MEAN CELL VOLUME 89.1 FL (80.0-100.0); MEAN CORPUSCULAR HEMOGLOBIN 29.7 PG (27.0-34.0); MEAN CORPUSCULAR HGB CONC 33.3 % (32.0-36.0); PLATELET COUNT 118 TH/MM3 (150-450); RED BLOOD COUNT 4.27 MIL/MM3 (4.00-5.30); RED CELL DISTRIBUTION WIDTH 14.3 % (11.6-17.2); REVIEW FLAG FINAL; WHITE BLOOD COUNT 5.1 TH/MM3 (4.0-11.0)
[2016-12-11 08:37] LABS: BICARBONATE 27.2 MEQ/L (21.0-32.0); INDIRECT BILIRUBIN 0.5 MG/DL (0.0-0.8); MAGNESIUM 1.9 MG/DL (1.5-2.5); TOTAL BILIRUBIN ADULT 0.8 MG/DL (0.2-1.0)
[2016-12-11 08:50] LABS: POTASSIUM 2.9 MEQ/L (3.5-5.1)
--- NOTE | 2016-12-11 08:50 | HHI.PR ---
Subjective Subjective Notes pain ok Objective Vitals/I&O Vital Signs Date Time Temp Pulse Resp B/P Pulse Ox O2 Delivery O2 Flow Rate FiO2 12/11/16 04:48 98.1 60 16 142/66 97 12/10/16 19:00 Room Air 12/10/16 15:15 2 Labs Laboratory Tests Test 12/11/16 06:20 White Blood Count 5.1 Red Blood Count 4.27 Hemoglobin 12.7 Hematocrit 38.1 Mean Corpuscular Volume 89.1 Mean Corpuscular Hemoglobin 29.7 Mean Corpuscular Hemoglobin 33.3 Concent Red Cell Distribution Width 14.3 Platelet Count 118 Mean Platelet Volume 9.2 Radiology Last Impressions Gall Bladder Ultrasound 12/07/168 Signed Impressions: Service Date/Time: Wednesday, December 07, 2016 22:00 - CONCLUSION: 1. Distended gallbladder with focal areas of sludge or small gallstones and biliary ductal dilatation to 15 mm. Trace pericholecystic fluid. Kevon Mortensen MD Chest X-Ray 12/07/16 1555 Signed Impressions: Service Date/Time: Wednesday, December 07, 2016 16:05 - CONCLUSION: 1. No acute cardiopulmonary disease. 2. Degenerative changes and scoliosis of the thoracolumbar spine. 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
[2016-12-11] MEDS ORDERED: APIXABAN 5 MG TABLET PO SCH (09:00)
[2016-12-11] MEDS: FLECAINIDE ACETATE 100 MG TAB PO SCH (09:00)
[2016-12-11 09:02] VITALS: BP 137/63; PULSE 60; RESP 18; TEMP 98.4; O2SAT 95
--- NOTE | 2016-12-11 09:09 | HHI.PR ---
Subjective Remarks The patient was not feeling hungry. She said she had abdominal pain when she coughs. She was not sure she would be able to go home today. Discussed with nursing. Objective Vitals Vital Signs Date Time Temp Pulse Resp B/P Pulse Ox O2 Delivery O2 Flow Rate FiO2 12/11/16 09:02 98.4 60 18 137/63 95 12/11/16 04:48 98.1 60 16 142/66 97 12/10/16 23:04 98.0 60 16 127/58 99 12/10/16 20:00 59 12/10/16 19:43 97.5 60 16 132/63 99 12/10/16 19:00 Room Air 12/10/16 16:00 97.2 60 20 148/67 100 12/10/16 15:15 97.8 64 14 145/77 99 Nasal Cannula 2 12/10/16 15:00 61 14 155/80 99 Nasal Cannula 2 12/10/16 14:45 72 14 157/77 99 Nasal Cannula 2 12/10/16 14:35 97.8 60 14 169/83 99 Nasal Cannula 2 I/O 12/10/16 12/10/16 12/10/16 12/11/16 12/11/16 12/11/16 07:00 15:00 23:00 07:00 15:00 23:00 Intake Total 0 ml 1100 ml 0 ml 200 ml Output Total 1000 ml 615 ml 200 ml 250 ml Balance -1000 ml 485 ml -200 ml -50 ml Intake Oral 0 ml 0 ml 200 ml Other 1100 ml Output Urine Total 1000 ml 600 ml 200 ml 250 ml Estimated Blood Loss 15 ml # Bowel Movements 0 0 0 0 Result Diagram: 12/11/1661912/11/16619 Imaging Last Impressions Gall Bladder Ultrasound 12/07/162117 Signed Impressions: Service Date/Time: Wednesday, December 07, 2016 22:00 - CONCLUSION: 1. Distended gallbladder with focal areas of sludge or small gallstones and biliary ductal dilatation to 15 mm. Trace pericholecystic fluid. Kevon Mortensen MD Chest X-Ray 12/07/16 1271 Signed Impressions: Service Date/Time: Wednesday, December 07, 2016 16:05 - CONCLUSION: 1. No acute cardiopulmonary disease. 2. Degenerative changes and scoliosis of the thoracolumbar spine. Deion Rivera MD Objective Remarks GENERAL: This is a well-nourished, well-developed patient, in no apparent distress. HEENT: Normocephalic. Pupils equal round and reactive. Nose without bleeding. Airway patent. NECK: Trachea midline. No JVD. Supple. CARDIOVASCULAR: Regular rate and rhythm, systolic murmur appreciated. RESPIRATORY: Clear to auscultation. Breath sounds equal bilaterally. No wheezes , rales, or rhonchi. GASTROINTESTINAL: Abdomen soft, mild tenderness, nondistended. Bowel Sounds normoactive. MUSCULOSKELETAL: Extremities without clubbing, cyanosis, or edema. NEUROLOGICAL: Awake and alert. Oriented x 3. No focal neuro deficit. LEVIN. Normal speech. PSYCH: Mood and affect appropriate. Procedures Cholecystectomy Medications and IVs Current Medications Medications (Trade) Dose Ordered Sig/Amara Route Start Time Stop Time Status Last Admin (Nitrostat Sl) 0.4 mg Q5M PRN SL 12/07/16 19:30 (NS Flush) 2 ml UNSCH PRN FLUSH 12/07/16 23:45 (NS Flush) 2 ml BID FLUSH 12/08/16 09:00 12/10/16 20:39 (Zofran Inj) 4 mg Q6H PRN IVP 12/07/16 23:45 Naloxone HCl 0.4 mg 0.4 mg UNSCH PRN IV 12/07/16 23:45 (Zosyn 4.5 Gm Premix) 100 ml @ 200 mls/hr Q6H IV 12/08/16 00:00 12/11/16 06:13 (Cardizem Cd) 240 mg DAILY PO 12/08/16 09:00 12/10/16 08:33 (Tambocor) 50 mg BID PO 12/08/16 09:00 12/10/16 20:42 (Lasix) 20 mg BID PO 12/08/16 09:00 12/10/16 20:42 (Synthroid) 88 mcg DAILY@06 PO 12/08/16 06:00 12/11/16 06:13 (Toprol Xl) 50 mg DAILY PO 12/08/16 09:00 12/10/16 08:34 (Protonix) 40 mg DAILY PO 12/08/16 09:00 12/10/16 08:33 Atorvastatin Calcium 80 mg 80 mg DAILY PO 12/08/16 09:00 12/10/16 08:33 Lactated Ringer's 1,000 ml @ 30 mls/hr Q24H IV 12/10/16 11:00 (NS 500 ml Inj) 500 ml @ 30 mls/hr [id number] IV 12/10/16 11:00 12/11/16 10:59 Miscellaneous Information ALL NURSING DEPARTME... UNSCH PRN XX 12/10/16 15:15 12/11/16 15:14 Acetaminophen/ Hydrocodone Bitart 1 tab 1 tab Q4H PRN PO 12/10/16 16:45 12/10/16 17:33 (Ofirmev Inj) 100 ml @ 400 mls/hr Q6H IV 12/10/16 18:00 12/11/16 12:14 (Zofran Inj) 4 mg Q6H PRN IV 12/10/16 16:45 12/10/16 17:31 (K-Lyte Cl Eff) 50 meq Q4H PO 12/11/16 09:00 12/11/16 13:01 UNV (Eliquis) 5 mg BID PO 12/11/16 09:00 UNV A/P Problem List: (1) Acute cholecystitis ICD Code: K81.0 Status: Acute (2) Elevated liver enzymes ICD Code: R74.8 Status: Acute (3) Chest pain ICD Code: R07.9 Status: Acute (4) Atrial fibrillation ICD Code: I48.91 Status: Chronic Assessment and Plan Patient is a 76-year-old white female who came in to the hospital with complaints of chest pain/epigastric pain associated with nausea and vomiting that began on 12/05/2016. CXR negative for acute cardiopulmonary disease. LFTs were noted to be elevated. Gallbladder ultrasound revealed distended gallbladder with focal areas of sludge or small gallstones and biliary ductal dilatation to 15 mm. Trace pericholecystic fluid. Acute cholecystitis - Elevated hepatic function tests due to acute cholecystitis. LFTs improving, trending down - S/p cholecystectomy 12/11/16. - Continue pain control. - Zosyn 4.5 g IV every 6 hours - cleared for discharge by GS. - antiemetics as needed. Atypical chest pain likely due to acute cholecystitis - Serial EKGs and cardiac enzymes to rule out ACS has been negative - Continuous cardiac telemetry to monitor for arrhythmia Atrial fibrillation, chroniccurrently stable. - d/c heparin gtt and resume Eliquis. - Continue home Cardizem and metoprolol with hold parameters for rate control - Patient sees Dr. Prabhu Avery as an outpatient. Hypokalemia Likely s/t decreased PO intake. - replete with KCl. - ADAT. DVT prophylaxis: Eliquis. Discharge Planning D/c home later today if able to tolerate a diet. Problem Qualifiers (1) Chest pain: Qualified Code: R07.9 - Chest pain, unspecified type (2) Atrial fibrillation: Qualified Code: I48.2 - Chronic atrial fibrillation Timothy Bess DO Dec 11, 2016 09:08
[2016-12-11] MEDS ORDERED: POTA-163 PO (09:10)
[2016-12-11] MEDS: ATORVASTATIN 40 MG TAB PO SCH (09:44)
[2016-12-11] MEDS: POTASSIUM CHLORIDE 25 MEQ EFFERVESCENT TAB PO SCH ×2 (09:44→13:11)
[2016-12-11] MEDS: FUROSEMIDE 20 MG TAB PO SCH (09:44)
[2016-12-11] MEDS: DILTIAZEM-CD 240 MG CAP ER PO SCH (09:44)
[2016-12-11] MEDS: PANTOPRAZOLE SOD 40 MG DELAYED RELEASE TAB PO SCH (09:44)
[2016-12-11] MEDS: METOPROLOL SUCCINATE 50 MG EXTENDED RELEASE TAB PO SCH (09:45)
[2016-12-11] MEDS: SODIUM CHLORIDE 0.9% FLUSH 5 ML FLUSH FLUSH SCH (09:45)
[2016-12-11] MEDS: LACTATED RINGER'S 1000 ML IV SCH (11:00)
[2016-12-11 13:55] VITALS: BP 132/65; PULSE 60; RESP 18; TEMP 98.3; O2SAT 97
--- NOTE | 2016-12-11 14:45 | HHI.DCPOC ---
Discharge Care Plan Diagnosis: (1) Elevated liver enzymes (2) Acute cholecystitis (3) Acid reflux (4) S/P laparoscopic cholecystectomy Goals to Promote Your Health * To prevent worsening of your condition and complications * To maintain your health at the optimal level Directions to Meet Your Goals Take your medications as prescribed Follow your dietary instruction Follow activity as directed Keep your appointments as scheduled Take your immunizations and boosters as scheduled If your symptoms worsen call your PCP, if no PCP go to Urgent Care Center or Emergency Room Smoking is Dangerous to Your Health. Avoid second hand smoke Call the 24-hour hour crisis hotline for domestic abuse at Timothy Bess DO Dec 11, 2016 14:45
--- NOTE | 2016-12-11 14:50 | HHI.DS ---
Discharge Summary Admission Date Dec 07, 2016 at 22:37 Discharge Date: Dec 11, 2016 Admitting Diagnosis cp ro mi, Elevated liver enzymes (1) Acute cholecystitis ICD Code: K81.0 Diagnosis: Principal (2) Elevated liver enzymes ICD Code: R74.8 (3) Chest pain ICD Code: R07.9 (4) Atrial fibrillation ICD Code: I48.91 Procedures Cholecystectomy Brief History - From Admission Ms. Song is a 76 year-old female with a past medical history of atrial fibrillation on Eliquis for anticoagulation, hypertension, hyperlipidemia, tachybradycardia syndrome status post permanent dual-chamber pacemaker placement by Dr. Peter on 01/29/2010, partial thyroidectomy at age 19 with radiation treatments in 2009 for hyperthyroidism, gastroesophageal reflux disease, and chronic kidney disease who presented to the ER on 12/07/2016 for evaluation of chest pain/epigastric with associated nausea and vomiting which began on 12/05/2016. CXR negative for acute cardiopulmonary disease. LFTs were noted to be elevated. Gallbladder ultrasound revealed distended gallbladder with focal areas of sludge or small gallstones and biliary ductal dilatation to 15 mm. Trace pericholecystic fluid. The patient is seen in the emergency room. She reports having chest pain/ epigastric pain with vomiting on Tuesday and it resolved after a few hours. It returned yesterday, lasted for 6 hours, and was accompanied by nausea, no vomiting. She denies any fever but reports some chills yesterday. She denies cough or shortness of breath, syncope, palpitations, black or bloody stools, and diarrhea. She complains of chronic muscle aches and back pain - sees Dr. Jade for outpatient pain management. She reports a history of gastroesophageal reflux disease but denies any history of cancer or coronary artery disease. The patient reports a history of nausea and vomiting with anesthesia during prior surgical procedures. engineering designer is Dr. Prabhu Avery . CBC/BMP: 12/11/16 0620 12/11/16 0620 Significant Findings Laboratory Tests Test 12/08/16 12/09/16 12/09/16 12/09/16 20:53 04:16 05:31 11:25 Activated Partial 83.7 SEC 122.8 SEC 44.7 SEC Thromboplast Time (24.3-30.1) (24.3-30.1) (24.3-30.1) Total Bilirubin 1.4 MG/DL (0.2-1.0) Direct Bilirubin 0.5 MG/DL (0.0-0.2) Indirect Bilirubin 0.9 MG/DL (0.0-0.8) Aspartate Amino Transf 140 U/L (15-37) (AST/SGOT) Alanine Aminotransferase 364 U/L (10-53) (ALT/SGPT) Alkaline Phosphatase 157 U/L (45-117) Albumin 3.3 GM/DL (3.4-5.0) Test 12/09/16 12/10/16 12/11/16 22:39 05:10 06:20 Activated Partial 43.9 SEC Thromboplast Time (24.3-30.1) Direct Bilirubin 0.3 MG/DL 0.3 MG/DL (0.0-0.2) (0.0-0.2) Aspartate Amino Transf 60 U/L (15-37) 56 U/L (15-37) (AST/SGOT) Alanine Aminotransferase 253 U/L (10-53) 196 U/L (10-53) (ALT/SGPT) Alkaline Phosphatase 147 U/L 131 U/L (45-117) (45-117) Albumin 3.3 GM/DL 3.2 GM/DL (3.4-5.0) (3.4-5.0) Platelet Count 118 TH/MM3 (150-450) Potassium Level 2.9 MEQ/L (3.5-5.1) Creatinine 1.18 MG/DL (0.50-1.00) Estimat Glomerular Filtration 44 ML/MIN (>89) Rate Amylase Level 21 U/L (25-115) Imaging Last Impressions Gall Bladder Ultrasound 12/07/162117 Signed Impressions: Service Date/Time: Wednesday, December 07, 2016 22:00 - CONCLUSION: 1. Distended gallbladder with focal areas of sludge or small gallstones and biliary ductal dilatation to 15 mm. Trace pericholecystic fluid. Kevon Mortensen MD Chest X-Ray 12/07/16 9211 Signed Impressions: Service Date/Time: Wednesday, December 07, 2016 16:05 - CONCLUSION: 1. No acute cardiopulmonary disease. 2. Degenerative changes and scoliosis of the thoracolumbar spine. Deion Rivera MD PE at Discharge GENERAL: This is a well-nourished, well-developed patient, in no apparent distress. HEENT: Normocephalic. Pupils equal round and reactive. Nose without bleeding. Airway patent. NECK: Trachea midline. No JVD. Supple. CARDIOVASCULAR: Regular rate and rhythm, systolic murmur appreciated. RESPIRATORY: Clear to auscultation. Breath sounds equal bilaterally. No wheezes , rales, or rhonchi. GASTROINTESTINAL: Abdomen soft, mild tenderness, nondistended. Bowel Sounds normoactive. MUSCULOSKELETAL: Extremities without clubbing, cyanosis, or edema. NEUROLOGICAL: Awake and alert. Oriented x 3. No focal neuro deficit. LEVIN. Normal speech. PSYCH: Mood and affect appropriate. Hospital Course Cholecystitis Patient is a 76-year-old white female who came in to the hospital with complaints of chest pain/epigastric pain associated with nausea and vomiting that began on 12/05/2016. CXR negative for acute cardiopulmonary disease. LFTs were noted to be elevated. Gallbladder ultrasound revealed distended gallbladder with focal areas of sludge or small gallstones and biliary ductal dilatation to 15 mm. Trace pericholecystic fluid. She was started on Zosyn. She received pain meds and antiemetics as needed. General surgery was consulted and the pt is s/p cholecystectomy 12/11/16. Her diet was advanced. She was cleared for discharge by GS. She will follow up with surgery as an outpt. Atypical chest pain S/t acute cholecystitis. Serial EKGs and cardiac enzymes to rule out ACS has been negative. She was monitored on telemetry. Atrial fibrillation Eliquis was held and she was placed on a heparin gtt. She was continued on her home Cardizem and metoprolol. Following surgery the heparin gtt was discontinued and Eliquis was resumed. Hypokalemia Repleted with KCl. She will be discharged on KCl supplements. She will have a repeat BMP as an outpt. Pt Condition on Discharge: Stable Discharge Disposition: Discharge Home Discharge Time: > 30 minutes Discharge Instructions DIET: Follow Instructions for: Low Residue Diet Activities you can perform: Weight Bearing as Tierney Follow up Referrals: Surgical - 10 Days with Kevon Ornelas MD New Orders: BASIC METABOLIC PROF - 3-5 Days New Medications: Hydrocodone-Acetaminophen ([place]) 5-325 mg Tab 1 TAB PO Q6H PRN PAIN #28 Ref 0 TAB Potassium Chloride ER (Potassium Chloride ER) 20 Meq Tab 20 MEQ PO DAILY Electrolyte Replacement #14 Ref 0 TAB Continued Medications: Apixaban (Eliquis) 5 Mg Tab 5 MG PO BID Blood Clot Prevention #60 Ref 0 TAB Diltiazem CD 24 HR (Diltiazem CD 24 HR) 240 Mg Caper 240 MG PO DAILY #30 Ref 0 CAP Flecainide (Flecainide) 50 Mg Tab 50 MG PO BID Regulate Heart Beat #60 Ref 0 TAB Furosemide (Furosemide) 20 Mg Tab 20 MG PO BID #60 Ref 0 TAB Hydrocodone-Acetaminophen (Hydrocodone-Acetaminophen) 7.5-325 mg Tab 1 TAB PO Q6H PRN PAIN #30 Ref 0 TAB Levothyroxine (Synthroid) 88 Mcg Tab 88 MCG PO DAILY Thyroid #30 Ref 0 TAB Metoprolol Succinate ER 24 HR (Metoprolol Succinate ER 24 HR) 50 Mg Tab 50 MG PO DAILY #30 Ref 0 TAB Pantoprazole (Pantoprazole) 40 Mg Tab 40 MG PO DAILY Reflux #30 Ref 0 TAB Rosuvastatin (Crestor) 40 Mg Tab 40 MG PO DAILY Cholesterol Management #30 Ref 0 TAB Timothy Bess DO Dec 11, 2016 14:50
[2016-12-11] MEDS ORDERED: PIPERACIL-TAZO 3.375 GM PREMIX 50 ML IV SCH (18:00)
--- NOTE | 2016-12-13 12:42 | MP ---
cc: KEISHA ORNELAS M.D. DATE OF SURGERY: 12/10/2016 PREOPERATIVE DIAGNOSIS Cholelithiasis, cholecystitis, history of gallstone pancreatitis. POSTOPERATIVE DIAGNOSIS Cholelithiasis, cholecystitis, history of gallstone pancreatitis. PROCEDURE Laparoscopic cholecystectomy. ANESTHESIA General. SURGEON Dr. Ornelas. INDICATION This is a pleasant 76-year-old female who had a bout of gallstone pancreatitis. She was taken off her blood thinners in preparation for her surgery and she recovered somewhat from her pancreatitis. Plans were made for above. PROCEDURE The patient was taken to the operating room and placed in the supine position. After endotracheal anesthesia her abdomen was prepped with Betadine solution. We make an incision just below the umbilicus. Veress needle was inserted. The saline load test was performed. The abdomen was insufflated to 15 mmHg. A 10 mm trocar was introduced. Camera was introduced. Two other working ports were placed 5 mm below the xyphoid, 5 mm in between the two previously placed ports. Gallbladder can be seen, it is slightly greenish color from chronic inflammation and ischemia. It looks like it had twisted upon itself somewhat during her event. The cystic duct is very high and she does not have much adipose tissue. The common duct is clearly identified. We are able to dissect through the thin veil of tissue of the mesentery to the gallbladder identifying the cystic duct, cystic artery, both of which were doubly ligated and transected. The gallbladder was then teased off the gallbladder bed, pulled out through the umbilical incision which must be elongated because of the distension of the gallbladder. The gallbladder is then passed off the field. The area was inspected. There was excellent hemostasis without biliary leakage. The liver is smooth. The peritoneal surfaces are smooth. No other gross abnormalities seen. The trocars are then removed, after the CO2 was removed, the fascial layer at the umbilicus was closed with a 0 Vicryl. Skin is closed with 4-0 Vicryl at all three sites. The patient tolerated the procedure well and had no immediate postop complications. MD NATASHA King/CANDACE /2:43 PM /12:34 PM
== END 2016-12-11 16:52 | disposition home or self-care (01) | DRG 419 ==
LOC: NEPE 14:25 → NEDA 22:37 → NEDH 12-08 03:54 → N04A 12-08 13:06 → N04B 12-11 12:28
PROVIDERS: ADMIT Hospitalist; ATTEND Hospitalist
PROC: 0FT44ZZ Resection of Gallbladder, Percutaneous Endoscopic Approach (ICD-10-PCS; principal; 2016-12-10 13:15)
DX: K80.00 Calculus of gallbladder with acute cholecystitis without obstruction (principal); I49.5 Sick sinus syndrome; I48.2 Chronic atrial fibrillation; J44.9 Chronic obstructive pulmonary disease, unspecified; K21.9 Gastro-esophageal reflux disease without esophagitis; Z79.01 Long term (current) use of anticoagulants; Z95.0 Presence of cardiac pacemaker; J45.909 Unspecified asthma, uncomplicated; G89.29 Other chronic pain; N18.9 Chronic kidney disease, unspecified; I12.9 Hypertensive chronic kidney disease with stage 1 through stage 4 chronic kidney disease, or unspecified chronic kidney disease; I25.10 Atherosclerotic heart disease of native coronary artery without angina pectoris; K44.9 Diaphragmatic hernia without obstruction or gangrene; M85.80 Other specified disorders of bone density and structure, unspecified site; E78.5 Hyperlipidemia, unspecified; K82.8 Other specified diseases of gallbladder; Z88.1 Allergy status to other antibiotic agents; Z88.2 Allergy status to sulfonamides; R11.2 Nausea with vomiting, unspecified; E87.6 Hypokalemia; Z92.3 Personal history of irradiation
CPT/HCPCS: 71010; 76705; 80048; 80053; 80076; 82150; 82550; 83690; 83735; 83880; 84484; 85025; 85027; 85379; 85610; 85730; 88304; 93005; 96361; 96374; 96375; C9113; J1130; J1644; J2270; J2370; J2405; J2543; J2710; J3010; J7040; J7120

== ENCOUNTER → 2017-01-03 | Outpatient (CLI) | payer MEDICARE, OTHER ==
[~2017-01-03] MED LIST changes: +DILT-64 PO; -DILTCD240 PO; +FLEC1TAB8 PO; -FURO20 PO; +FURO20TA PO; +HYDR-3580 PO; -LEVO.1 PO; -METO100T9 PO; +METO50TA11 PO; +NORC5TAB PO; -NORC7.5T PO; +PANT40TA3 PO; +POTA-163 PO; -PRIL40CA PO; -ROSU10 PO; +ROSU40 PO; -ZOFR4TAB3 SL
[2017-01-03 14:21] LABS: ALKALINE PHOSPHATASE 103 U/L (45-117); ALT (GPT) 13 U/L (10-53); AMYLASE 37 U/L (25-115); ANION GAP 7 MEQ/L (5-15); AST (GOT) 14 U/L (15-37); BICARBONATE 29.3 MEQ/L (21.0-32.0); BLOOD UREA NITROGEN 11 MG/DL (7-18); CHLORIDE 106 MEQ/L (98-107); FREE T3 2.03 PG/ML (2.18-3.98); FREE T4 1.44 NG/DL (0.76-1.46); GLOMERULAR FILTRATION RATE 55 ML/MIN (>89); GLUCOSE,FASTING 86 MG/DL (74-99); POTASSIUM 4.1 MEQ/L (3.5-5.1); SODIUM (NA) 142 MEQ/L (136-145); TOTAL BILIRUBIN ADULT 0.4 MG/DL (0.2-1.0)
== END ==
LOC: PLAB 10:45
PROVIDERS: ATTEND Family Medicine
DX: E03.9 Hypothyroidism, unspecified (principal); Z51.81 Encounter for therapeutic drug level monitoring; R10.13 Epigastric pain; R11.2 Nausea with vomiting, unspecified
CPT/HCPCS: 36415; 80053; 82150; 83690; 84439; 84443; 84481

== ENCOUNTER → 2017-01-04 | Outpatient (CLI) | payer MEDICARE, OTHER ==
[2017-01-04 16:10] LABS: AUTOMATED NEUTROPHIL # 2.5 TH/MM3 (1.8-7.7); BASOPHIL % 0.6 % (0.0-2.0); EOSINOPHIL # 0.4 TH/MM3 (0-0.4); EOSINOPHIL % 8.9 % (0.0-4.0); HEMO FLAGS DIFF FINAL; LYMPH % 19.6 % (9.0-44.0); LYMPHOCYTE # 0.8 TH/MM3 (1.0-4.8); MEAN CELL VOLUME 89.2 FL (80.0-100.0); MEAN CORPUSCULAR HEMOGLOBIN 29.9 PG (27.0-34.0); MEAN CORPUSCULAR HGB CONC 33.5 % (32.0-36.0); MONO % 8.3 % (0.0-8.0); NEUT % 62.6 % (16.0-70.0); PLATELET COUNT 159 TH/MM3 (150-450); RED BLOOD COUNT 4.15 MIL/MM3 (4.00-5.30); RED CELL DISTRIBUTION WIDTH 14.5 % (11.6-17.2)
== END ==
LOC: PLAB 11:39
PROVIDERS: ATTEND Family Medicine
DX: I48.91 Unspecified atrial fibrillation (principal); R10.13 Epigastric pain; E78.5 Hyperlipidemia, unspecified; I11.9 Hypertensive heart disease without heart failure; R11.2 Nausea with vomiting, unspecified; Z51.81 Encounter for therapeutic drug level monitoring
CPT/HCPCS: 36415; 85025

== ENCOUNTER → 2017-02-01 | Outpatient (CLI) | payer MEDICARE, OTHER ==
[2017-02-01 16:08] LABS: AUTOMATED NEUTROPHIL # 2.8 TH/MM3 (1.8-7.7); BASOPHIL % 0.6 % (0.0-2.0); EOSINOPHIL # 0.2 TH/MM3 (0-0.4); EOSINOPHIL % 5.2 % (0.0-4.0); HEMATOCRIT 35.7 % (35.0-46.0); HEMO FLAGS DIFF FINAL; LYMPH % 20.4 % (9.0-44.0); LYMPHOCYTE # 0.9 TH/MM3 (1.0-4.8); MEAN CELL VOLUME 89.5 FL (80.0-100.0); MEAN CORPUSCULAR HEMOGLOBIN 30.1 PG (27.0-34.0); MEAN CORPUSCULAR HGB CONC 33.7 % (32.0-36.0); NEUT % 62.8 % (16.0-70.0); PLATELET COUNT 169 TH/MM3 (150-450); RED BLOOD COUNT 3.99 MIL/MM3 (4.00-5.30); RED CELL DISTRIBUTION WIDTH 14.8 % (11.6-17.2); WHITE BLOOD COUNT 4.4 TH/MM3 (4.0-11.0)
[2017-02-01 16:27] LABS: ANION GAP 6 MEQ/L (5-15); AST (GOT) 12 U/L (15-37); BICARBONATE 27.7 MEQ/L (21.0-32.0); BLOOD UREA NITROGEN 19 MG/DL (7-18); CHLORIDE 110 MEQ/L (98-107); GLOMERULAR FILTRATION RATE 61 ML/MIN (>89); GLUCOSE,FASTING 88 MG/DL (74-99); POTASSIUM 4.8 MEQ/L (3.5-5.1); SODIUM (NA) 144 MEQ/L (136-145)
[2017-02-01 16:37] LABS: ALKALINE PHOSPHATASE 96 U/L (45-117); ALT (GPT) 16 U/L (10-53); HDL CHOLESTEROL 84.7 MG/DL (40.0-60.0); LDL CHOLESTEROL 59 MG/DL (0-99); TOTAL BILIRUBIN ADULT 0.5 MG/DL (0.2-1.0)
== END ==
LOC: PLAB 11:43
PROVIDERS: ATTEND Family Medicine
DX: E78.5 Hyperlipidemia, unspecified (principal); I11.9 Hypertensive heart disease without heart failure; E03.9 Hypothyroidism, unspecified; I25.10 Atherosclerotic heart disease of native coronary artery without angina pectoris; K21.9 Gastro-esophageal reflux disease without esophagitis
CPT/HCPCS: 36415; 80053; 80061; 84443; 85025

== ENCOUNTER → 2017-03-18 | Outpatient (CLI) | payer MEDICARE, OTHER ==
[2017-03-18 13:35] LABS: AUTOMATED NEUTROPHIL # 2.6 TH/MM3 (1.8-7.7); BASOPHIL % 0.7 % (0.0-2.0); EOSINOPHIL # 0.3 TH/MM3 (0-0.4); EOSINOPHIL % 6.4 % (0.0-4.0); HEMATOCRIT 37.1 % (35.0-46.0); HEMO FLAGS DIFF FINAL; LYMPHOCYTE # 0.6 TH/MM3 (1.0-4.8); MEAN CELL VOLUME 88.2 FL (80.0-100.0); MEAN CORPUSCULAR HEMOGLOBIN 30.4 PG (27.0-34.0); MEAN CORPUSCULAR HGB CONC 34.4 % (32.0-36.0); MONO % 10.5 % (0.0-8.0); NEUT % 66.4 % (16.0-70.0); PLATELET COUNT 169 TH/MM3 (150-450); RED BLOOD COUNT 4.21 MIL/MM3 (4.00-5.30); RED CELL DISTRIBUTION WIDTH 13.8 % (11.6-17.2); WHITE BLOOD COUNT 3.9 TH/MM3 (4.0-11.0)
[2017-03-18 13:59] LABS: ANION GAP 6 MEQ/L (5-15); AST (GOT) 14 U/L (15-37); BICARBONATE 27.2 MEQ/L (21.0-32.0); BLOOD UREA NITROGEN 18 MG/DL (7-18); CHLORIDE 108 MEQ/L (98-107); GLOMERULAR FILTRATION RATE 57 ML/MIN (>89); SODIUM (NA) 141 MEQ/L (136-145)
[2017-03-18 14:05] LABS: ALKALINE PHOSPHATASE 110 U/L (45-117); ALT (GPT) 15 U/L (10-53); TOTAL BILIRUBIN ADULT 0.5 MG/DL (0.2-1.0)
[2017-03-18 14:08] LABS: FREE T4 1.2 NG/DL (0.76-1.46)
== END ==
LOC: PLAB 09:47
DX: E03.9 Hypothyroidism, unspecified (principal); M85.80 Other specified disorders of bone density and structure, unspecified site; D64.9 Anemia, unspecified; I11.9 Hypertensive heart disease without heart failure
CPT/HCPCS: 36415; 80053; 84439; 84443; 85025

== ENCOUNTER → 2017-07-27 | Outpatient (CLI) | payer MEDICARE, OTHER ==
[2017-07-27 14:07] LABS: FREE T4 1.19 NG/DL (0.76-1.46)
== END ==
LOC: PLAB 08:11
DX: E03.9 Hypothyroidism, unspecified (principal)
CPT/HCPCS: 36415; 84439; 84443

== ENCOUNTER → 2017-11-17 | Outpatient (CLI) | payer MEDICARE, OTHER ==
[~2017-11-17] MED LIST changes: -DILT-64 PO; +DILT240C44 PO; +METO1TAB9 PO; -METO50TA11 PO
[2017-11-17 13:42] LABS: AUTOMATED NEUTROPHIL # 2.6 TH/MM3 (1.8-7.7); BASOPHIL % 0.8 % (0.0-2.0); EOSINOPHIL # 0.3 TH/MM3 (0-0.4); EOSINOPHIL % 6.6 % (0.0-4.0); HEMATOCRIT 40.7 % (35.0-46.0); HEMOGLOBIN 13.5 GM/DL (11.6-15.3); LYMPH % 20.1 % (9.0-44.0); LYMPHOCYTE # 0.8 TH/MM3 (1.0-4.8); MEAN CELL VOLUME 89.7 FL (80.0-100.0); MEAN CORPUSCULAR HEMOGLOBIN 29.7 PG (27.0-34.0); MEAN CORPUSCULAR HGB CONC 33.1 % (32.0-36.0); MEAN PLATELET VOLUME 9.2 FL (7.0-11.0); MONO % 10.8 % (0.0-8.0); MONOCYTE # 0.4 TH/MM3 (0-0.9); NEUT % 61.7 % (16.0-70.0); PLATELET COUNT 173 TH/MM3 (150-450); RED BLOOD COUNT 4.54 MIL/MM3 (4.00-5.30); RED CELL DISTRIBUTION WIDTH 14.4 % (11.6-17.2); WHITE BLOOD COUNT 4.1 TH/MM3 (4.0-11.0)
[2017-11-17 13:49] LABS: ALBUMIN 3.7 GM/DL (3.4-5.0); ALT (GPT) 17 U/L (10-53); AST (GOT) 15 U/L (15-37); BICARBONATE 29.5 MEQ/L (21.0-32.0); BLOOD UREA NITROGEN 16 MG/DL (7-18); CHLORIDE 107 MEQ/L (98-107); CHOLESTEROL 184 MG/DL (120-200); GLOMERULAR FILTRATION RATE 53 ML/MIN (>89); GLUCOSE,FASTING 89 MG/DL (74-99); SODIUM (NA) 141 MEQ/L (136-145)
[2017-11-17 13:59] LABS: ALKALINE PHOSPHATASE 121 U/L (45-117); CHOLESTEROL/ HDL RATIO 1.85 RATIO; LDL CHOLESTEROL 69 MG/DL (0-99); TOTAL BILIRUBIN ADULT 0.5 MG/DL (0.2-1.0); TOTAL PROTEIN 7.3 GM/DL (6.4-8.2); TRIGLYCERIDES 78 MG/DL (42-150)
[2017-11-17 16:46] LABS: HEMOGLOBIN A1C 5.6 % (4.3-6.0)
== END ==
LOC: PLAB 08:27
PROVIDERS: ATTEND Family Medicine
DX: E55.9 Vitamin D deficiency, unspecified (principal); I48.91 Unspecified atrial fibrillation; I25.10 Atherosclerotic heart disease of native coronary artery without angina pectoris; K21.9 Gastro-esophageal reflux disease without esophagitis; E78.5 Hyperlipidemia, unspecified; I11.9 Hypertensive heart disease without heart failure; E03.9 Hypothyroidism, unspecified
CPT/HCPCS: 36415; 80053; 80061; 82306; 83036; 84443; 85025

== ENCOUNTER → 2018-01-26 | Outpatient (CLI) | payer MEDICARE, OTHER | LOC: PLAB 12:12 | PROVIDERS: ATTEND Internal Medicine Gastroenterology | DX: R74.8 Abnormal levels of other serum enzymes (principal) | CPT/HCPCS: 36415; 82977 ==

== ENCOUNTER 2018-11-05 18:02 | Observation (INO) ==
[2018-11-05] MEDS ORDERED: Famotidine PF Inj 20 MG/2 ML Vial IV.PUSH ONE (18:27)
[2018-11-05] MEDS ORDERED: Sod Chloride 0.9% Inj 1,000 ML IV.CONT SCH (18:30)
--- NOTE | 2018-11-05 18:32 | ED ---
HPI General Chief complaint: Respiratory Symptoms Stated complaint: Flu like sympt Time Seen by Provider: 11/05/18 18:18 Source: patient Mode of arrival: EMS Limitations: no limitations History of Present Illness HPI Narrative: The patient is a 78-year-old female who presents to the emergency department via EMS for nausea, vomiting, cough, and subjective fever. The patient states it started a week ago with a cough that was mostly dry nonproductive, however, over the last 24 hours is been somewhat productive and associated with nausea and vomiting. The patient also complains of subjective fever with chills and sweats. The patient denies any headache, does take Eliquis for history of atrial fibrillation. The patient denies any abdominal pain associated with her nausea and vomiting and also denies any diarrhea. The patient denies any associated dysuria, frequency, or urgency. The patient has had previous abdominal surgeries including appendectomy, cholecystectomy, and hysterectomy. The patient does note she has multiple sick contacts, family members, at home with similar symptoms. The patient's primary physician is Dr. Hansen. The patient denies any chest pain or shortness of breath. MD complaint: Reports nausea and vomiting Onset (ago): hour(s) Description of Vomiting: watery and bilious Description of Diarrhea: none Associated Abdominal Pain: No Severity: moderate Severity scale (1-10): 7 Relieving factors: none Exacerbating factors: none Context: Reports sick contacts Associated symptoms: Reports cough, fever/chills and nausea/vomiting Related Data Home Medications Medication Instructions Recorded Confirmed apixaban [Eliquis] 5 mg PO BID 05/11/18 11/05/18 diltiazem HCl 240 mg PO DAILY 05/11/18 11/05/18 flecainide 50 mg PO Q12H 05/11/18 11/05/18 levothyroxine [Synthroid] 88 mcg PO DAILY 05/11/18 11/05/18 metoprolol succinate 50 mg PO DAILY 05/11/18 11/05/18 pantoprazole 40 mg PO DAILY 05/11/18 11/05/18 rosuvastatin [Crestor] 40 mg PO DAILY 05/11/18 11/05/18 Allergies Allergy/AdvReac Type Severity Reaction Status Date / Time cephalexin Allergy Severe Nausea/Vomi Verified 11/05/18 19:21 ting Sulfa (Sulfonamide Allergy Severe rash Verified 11/05/18 19:21 Antibiotics) Review of Systems ROS: all other systems reviewed are negative [facility] Medical History Medical History AF (paroxysmal atrial fibrillation) (Acute) Asthma (Acute) CAD (coronary artery disease) (Acute) Hypertension (Acute) Hyperthyroidism (Acute) Pacemaker (Acute) Spinal stenosis (Acute) Tachy-brayden syndrome (Acute) Surgical History Surgical History S/P ablation of atrial fibrillation (Acute) Social History Social History Substance History: No History of Abuse Smoking Status: Never smoker How Often Do You Have a Drink Containing Alcohol: Never Recent Travel in [facility] within the Last 8 Weeks: No Recent Out of Country Travel within the Last 8 Weeks: No Exam Narrative Exam Narrative: GENERAL: Awake, alert, 78-year-old female who is actively vomiting when I entered the room. SKIN: Focused skin assessment warm/dry. HEAD: Atraumatic. Normocephalic. EYES: Pupils equal and round. 3 mm bilateral and reactive. ENT: No nasal bleeding or discharge. Dry mucous membranes. NECK: Trachea midline. No JVD. CARDIOVASCULAR: Irregularly irregular, no audible murmur. RESPIRATORY: No accessory muscle use. Clear to auscultation. Breath sounds equal bilaterally. GASTROINTESTINAL: Abdomen soft, non-tender, nondistended. Well-healed transverse scar over the lower aspect of the abdomen. Well-healed scar near the umbilicus. Back: No CVA tenderness. MUSCULOSKELETAL: No obvious deformities. No clubbing. No cyanosis. No edema. NEUROLOGICAL: Awake and alert. No obvious cranial nerve deficits. Motor grossly within normal limits. Normal speech. Nonfocal. Oriented x3. PSYCHIATRIC: Appropriate mood and affect; insight and judgment normal. Course Initial Documented Vital Signs Temperature 97.4 F L 11/05/18 18:25 Pulse Rate 75 11/05/18 18:25 Respiratory Rate 20 11/05/18 18:25 Blood Pressure 180/75 H 11/05/18 18:25 Pulse Oximetry 96 11/05/18 18:25 Last Documented Vital Signs Temperature 97.4 F L 01/06/19 18:25 Pulse Rate 75 11/05/18 19:36 Respiratory Rate 18 11/05/18 19:36 Blood Pressure 166/77 H 11/05/18 19:36 Pulse Oximetry 98 11/05/18 19:36 Sign Out Sign Out Data: Patient Sign Out occurred on 11/05/18 at 19:58. Patient's care was discussed, and care was transferred from Dre Lucas MD to Nori Holt. Sign Out Comment: 78-year-old female who presents to the emergency department for nausea, vomiting, cough, with multiple sick family members at home. Patient continued to make despite IV fluids and Zofran by EMS. The patient does have a history of atrial fibrillation is on Eliquis. Follow-up CT of the brain to rule out intracranial hemorrhage, chest x-ray for pneumonia, influenza screen, and UA. Follow-up labs and imaging, disposition based on workup and reevaluation. Last updated by Dre Lucas MD at 11/05/18 18:38 Medical Decision Making MDM Narrative Medical decision making narrative: IV was established, labs are drawn and sent, and the patient was placed on cardiac telemetry monitoring and continuous pulse oximetry monitoring. The patient received Zofran 4 mg intravenously and 300 cc of normal saline by EMS prior to arrival, however, continues to have nausea and vomiting. Therefore, the patient was administered Reglan and Pepcid intravenously. EKG was ordered and interpreted. Chest x-ray was obtained. CT of the brain was ordered to rule out spontaneous intracranial hemorrhage with elevated blood pressure and anticoagulation on Eliquis. Lactic acid and UA were sent to lab. The patient was signed out to the oncoming physician, Dr. Gilliam, with laboratory evaluation, EKG, chest x-ray, and reevaluation pending. 1940 PM. Patient was seen by ED physician and signed out to me. Patient is with metabolic acidosis and elevated lactic acid. Most likely secondary to dehydration. No evidence of bacterial infection. Most likely viral syndrome with dehydration. Patient was given Zofran, Reglan, IV fluid. Medical Screen Exam Complete: Yes Emergency Medical Condition: Yes Differential Diagnosis Differential Diagnosis: Differential diagnosis includes influenza, pneumonia, viral syndrome, gastritis, gastroenteritis, intracranial hemorrhage, pyelonephritis, UTI, dehydration, electrolyte abnormality, STEMI, ACS. Lab Data Lab results reviewed: Yes I reviewed the patient's lab results. Result diagrams: 11/05/18 18:50 11/05/18 18:50 Lab Results 11/05/18 11/05/18 11/05/18 Range/Units 18:50 18:50 18:50 CBC w Diff Auto diff final WBC 6.2 (4.0-11.0) th/mm3 RBC 4.32 (4.00-5.30) mil/mm3 Hgb 13.0 (11.6-15.3) gm/dL Hct 38.1 (35.0-46.0) % MCV 88.1 (80.0-100.0) fL MCH 30.1 (27.0-34.0) pg MCHC 34.2 (32.0-36.0) % RDW 13.0 (11.6-17.2) % Plt Count 249 (150-450) th/mm3 MPV 8.7 (7.0-11.0) fL Neut % (Auto) 84.5 H (16.0-70.0) % Lymph % (Auto) 12.6 (9.0-44.0) % [place] % (Auto) 2.1 (0.0-8.0) % Eos % (Auto) 0.3 (0.0-4.0) % Baso % (Auto) 0.5 (0.0-2.0) % Neut # (Auto) 5.3 (1.8-7.7) th/mm3 Lymph # (Auto) 0.8 L (1.0-4.8) th/mm3 [place] # (Auto) 0.1 (0.0-0.9) th/mm3 Eos # (Auto) 0.0 (0.0-0.4) th/mm3 Baso # (Auto) 0.0 (0.0-0.2) th/mm3 WBC Differential . Differential Comment . Sodium 138 (136-145) meq/L Potassium 3.4 L (3.5-5.1) meq/L Chloride 106 (98-107) meq/L Carbon Dioxide 16.7 L (21.0-32.0) meq/L Anion Gap 15 (5-15) meq/L BUN 13 (7-18) mg/dL Creatinine 0.88 (0.50-1.00) mg/dL Estimated GFR 62 L (>89) mL/min Random Glucose 130 H (74-106) mg/dL Lactic Acid 2.2 H (0.4-2.0) mmol/L Calcium 8.7 (8.5-10.1) mg/dL Magnesium 1.8 (1.5-2.5) mg/dL Total Bilirubin 0.6 (0.2-1.0) mg/dL AST 15 (15-37) U/L ALT 15 (10-53) U/L Alkaline Phosphatase 105 (45-117) U/L Total Creatine Kinase 142 (26-192) U/L CK-MB (CK-2) 1.3 (0.5-3.6) ng/mL Troponin I Less than 0.02 L (0.02-0.05) ng/mL Total Protein 7.1 (6.4-8.2) g/dL Albumin 3.2 L (3.4-5.0) g/dL Lipase 74 (73-393) U/L Urine Color (Yellw/Straw) Urine Clarity (Clear) Urine pH (5.0-8.5) Ur Specific [place] (1.002-1.035) Urine Protein (Neg-Trace) mg/dL Urine Glucose (UA) (Negative) mg/dL Urine Ketones (Negative) mg/dL Urine Occult Blood (Negative) Urine Nitrate (Negative) Urine Bilirubin (Negative) Urine Urobilinogen (Less than 2) mg/dL Ur Leukocyte Esterase (Negative) Urine RBC (0-3) /hpf Urine WBC (0-5) /hpf Ur Squamous Epith Cells (0-5) /hpf Micro UA Comment Ur Microscopic Review Urine Culture Comments 11/05/18 Range/Units 20:15 CBC w Diff WBC (4.0-11.0) th/mm3 RBC (4.00-5.30) mil/mm3 Hgb (11.6-15.3) gm/dL Hct (35.0-46.0) % MCV (80.0-100.0) fL MCH (27.0-34.0) pg MCHC (32.0-36.0) % RDW (11.6-17.2) % Plt Count (150-450) th/mm3 MPV (7.0-11.0) fL Neut % (Auto) (16.0-70.0) % Lymph % (Auto) (9.0-44.0) % [place] % (Auto) (0.0-8.0) % Eos % (Auto) (0.0-4.0) % Baso % (Auto) (0.0-2.0) % Neut # (Auto) (1.8-7.7) th/mm3 Lymph # (Auto) (1.0-4.8) th/mm3 [place] # (Auto) (0.0-0.9) th/mm3 Eos # (Auto) (0.0-0.4) th/mm3 Baso # (Auto) (0.0-0.2) th/mm3 WBC Differential Differential Comment Sodium (136-145) meq/L Potassium (3.5-5.1) meq/L Chloride (98-107) meq/L Carbon Dioxide (21.0-32.0) meq/L Anion Gap (5-15) meq/L BUN (7-18) mg/dL Creatinine (0.50-1.00) mg/dL Estimated GFR (>89) mL/min Random Glucose (74-106) mg/dL Lactic Acid (0.4-2.0) mmol/L Calcium (8.5-10.1) mg/dL Magnesium (1.5-2.5) mg/dL Total Bilirubin (0.2-1.0) mg/dL AST (15-37) U/L ALT (10-53) U/L Alkaline Phosphatase (45-117) U/L Total Creatine Kinase (26-192) U/L CK-MB (CK-2) (0.5-3.6) ng/mL Troponin I (0.02-0.05) ng/mL Total Protein (6.4-8.2) g/dL Albumin (3.4-5.0) g/dL Lipase (73-393) U/L Urine Color Yellow (Yellw/Straw) Urine Clarity Clear (Clear) Urine pH 6.5 (5.0-8.5) Ur Specific [place] 1.020 (1.002-1.035) Urine Protein Trace (Neg-Trace) mg/dL Urine Glucose (UA) Negative (Negative) mg/dL Urine Ketones 40 H (Negative) mg/dL Urine Occult Blood Small H (Negative) Urine Nitrate Negative (Negative) Urine Bilirubin Negative (Negative) Urine Urobilinogen 0.2 (Less than 2) mg/dL Ur Leukocyte Esterase Negative (Negative) Urine RBC 15-50 H (0-3) /hpf Urine WBC 0-5 (0-5) /hpf Ur Squamous Epith Cells 0-5 (0-5) /hpf Micro UA Comment Culture not ind Ur Microscopic Review Microscopic reviewed Urine Culture Comments Culture not ind Imaging Data Attestation: I personally reviewed and interpreted this imaging study as follows : Radiologist's impression: Chest X-Ray 11/05/18 18:27 CONCLUSION: No acute cardiopulmonary disease identified. Head CT 11/05/18 18:27 CONCLUSION: No acute intracranial findings. . ECG Data EKG Prior to Arrival: No Attestation: I personally reviewed and interpreted this ECG as follows: Interpretation: EKG reveals electronic atrial pacemaker. Nonspecific T wave changes. Discharge Plan Discharge Disposition Patient Disposition: ED Admit(ED Internal Use Only) Discharge Details Diagnosis: Acute dehydration, Viral infection, Hematuria Physicians Team ED Provider: Alexander Gilliam Primary Care Provider: Keegan Hansen Rxs /Orders / Referrals /Forms Prescriptions: No Action diltiazem HCl 240 mg Capsule,Ext.Rel 24h Degradable 240 mg PO DAILY RF: 0 metoprolol succinate 50 mg Tablet Extended Release 24 Hr 50 mg PO DAILY RF: 0 levothyroxine [Synthroid] 88 mcg Tablet 88 mcg PO DAILY RF: 0 pantoprazole 40 mg Tablet,Delayed Release (Dr/Ec) 40 mg PO DAILY RF: 0 flecainide 50 mg Tablet 50 mg PO Q12H RF: 0 rosuvastatin [Crestor] 40 mg Tablet 40 mg PO DAILY RF: 0 apixaban [Eliquis] 5 mg Tablet 5 mg PO BID RF: 0 Status ED Status: With Doctor
--- NOTE | 2018-11-05 18:58 | XR ---
EXAM DATE: 11/05/2018 6:54 PM EST AGE/SEX: 78 years / Female INDICATIONS: Short of breath, cough, nausea, vomiting CLINICAL DATA: This is the patient's initial encounter. Patient reports that signs and symptoms have been present for 1 day and indicates a pain score of 0/10. MEDICAL/SURGICAL HISTORY: . Hypertension. . Pacemaker. Ablation COMPARISON: [facility], CHEST SINGLE AP, 12/07/2016. . FINDINGS: Single AP view of the chest. Respiratory motion artifact noted. Dual-lead cardiac pacemake r remains in place. The lungs are clear. Cardiomediastinal silhouette within normal limits. No evid ence of pleural effusion or pneumothorax. CONCLUSION: No acute cardiopulmonary disease identified. Electronically signed by: Isaiah Sheehan MD Board Certified Radiologist 11/05/2018 6:56 PM EST
[2018-11-05 19:15] LABS: Baso % (Auto) 0.5 % (0.0-2.0); Eos % (Auto) 0.3 % (0.0-4.0); Hematocrit 38.1 % (35.0-46.0); Lymph # (Auto) 0.8 th/mm3 (1.0-4.8); Lymph % (Auto) 12.6 % (9.0-44.0); Mean Corpuscular HGB Conc 34.2 % (32.0-36.0); Mean Corpuscular Hemoglobin 30.1 pg (27.0-34.0); Mean Corpuscular Volume 88.1 fL (80.0-100.0); Mean Platelet Volume 8.7 fL (7.0-11.0); Mono # (Auto) 0.1 th/mm3 (0.0-0.9); Mono % (Auto) 2.1 % (0.0-8.0); Neut # (Auto) 5.3 th/mm3 (1.8-7.7); Neut % (Auto) 84.5 % (16.0-70.0); Platelet Count 249 th/mm3 (150-450); Red Blood Count 4.32 mil/mm3 (4.00-5.30); White Blood Count 6.2 th/mm3 (4.0-11.0)
[2018-11-05 19:22] LABS: Chloride 106 meq/L (98-107); Potassium 3.4 meq/L (3.5-5.1); Sodium 138 meq/L (136-145)
[2018-11-05 19:25] LABS: Calcium 8.7 mg/dL (8.5-10.1)
[2018-11-05 19:26] LABS: Albumin 3.2 g/dL (3.4-5.0); Anion Gap 15 meq/L (5-15); Blood Urea Nitrogen 13 mg/dL (7-18); Carbon Dioxide 16.7 meq/L (21.0-32.0); Glucose,Random 130 mg/dL (74-106); Lipase 74 U/L (73-393); Magnesium 1.8 mg/dL (1.5-2.5)
[2018-11-05 19:28] LABS: Alanine Aminotransferase 15 U/L (10-53); Aspartate Aminotransferase 15 U/L (15-37)
[2018-11-05 19:29] LABS: Glomerular Filtration Rate 62 mL/min (>89)
[2018-11-05 19:30] LABS: Total Protein 7.1 g/dL (6.4-8.2)
[2018-11-05 19:31] LABS: Alkaline Phosphatase 105 U/L (45-117); Creatine Kinase 142 U/L (26-192)
[2018-11-05 19:44] LABS: Creatine Kinase MB 1.3 ng/mL (0.5-3.6)
--- NOTE | 2018-11-05 19:57 | CT ---
EXAM DATE: 11/05/2018 7:35 PM EST AGE/SEX: 78 years / Female INDICATIONS: Nausea and vomiting. Evaluate for spontaneous intracranial hemorrhage with elevated blo od pressure. CLINICAL DATA: This is the patient's initial encounter. Patient reports that signs and symptoms have been present for 1 day and indicates a pain score of 0/10. MEDICAL/SURGICAL HISTORY: Cardiovascular disease. Hypertension. Pacemaker. Appendectomy. Cholecy stectomy. Hysterectomy. RADIATION DOSE: 52.91 CTDI (mGy) COMPARISON: [facility], CT BRAIN W/O CONTRAST, 02/20/2015. . TECHNIQUE: CT of the head without contrast. Using automated exposure control and adjustment of the mA and/or kV according to patient size, radiation dose was kept as low as reasonably achievable to ob tain optimal diagnostic quality images. DICOM format image data is available electronically for revi ew and comparison. FINDINGS: Cerebrum: The ventricles are normal for age. No evidence of midline shift, mass lesion, hemorrhage or acute infarction. No extraaxial fluid collections are seen. Posterior Fossa: The cerebellum and brainstem are intact. The 4th ventricle is midline. The cerebe llopontine angle is unremarkable. Extracranial: The visualized portion of the orbits is intact. Skull: The calvaria is intact. No evidence of skull fracture. CONCLUSION: No acute intracranial findings. . Electronically signed by: Isaiah Sheehan MD Board Certified Radiologist 11/05/2018 7:55 PM EST
[2018-11-05 20:38] LABS: Bilirubin,Urine Negative (Negative); Clarity,Urine Clear (Clear); Color,Urine Yellow (Yellw/Straw); Glucose,Urine (UA) Negative (Negative); Leukocyte Esterase,Urine Negative (Negative); Nitrite,Urine Negative (Negative); PH,Urine 6.5 (5.0-8.5); Urobilinogen,Urine 0.2 mg/dL (Less than 2)
[2018-11-05 20:42] LABS: Squamous Epithelial Cell,Urine 0-5 /hpf (0-5); WBC,Urine 0-5 /hpf (0-5)
[2018-11-05] MEDS ORDERED: Acetaminophen 325 MG Tablet PO PRN (21:04)
[2018-11-05] MEDS ORDERED: Bisacodyl 10 MG Supp RECTAL PRN (21:04)
[2018-11-05] MEDS: Sod Chloride 0.9% Inj 1,000 ML IV.CONT SCH (21:13)
[2018-11-06 06:48] LABS: Baso % (Auto) 0.1 % (0.0-2.0); Eos % (Auto) 0.7 % (0.0-4.0); Hematocrit 34.9 % (35.0-46.0); Hemoglobin 11.4 gm/dL (11.6-15.3); Lymph # (Auto) 0.8 th/mm3 (1.0-4.8); Lymph % (Auto) 14.6 % (9.0-44.0); Mean Corpuscular HGB Conc 32.6 % (32.0-36.0); Mean Corpuscular Hemoglobin 29.5 pg (27.0-34.0); Mean Corpuscular Volume 90.7 fL (80.0-100.0); Mean Platelet Volume 8.5 fL (7.0-11.0); Mono # (Auto) 0.5 th/mm3 (0.0-0.9); Mono % (Auto) 8.8 % (0.0-8.0); Neut # (Auto) 4.2 th/mm3 (1.8-7.7); Neut % (Auto) 75.8 % (16.0-70.0); Platelet Count 227 th/mm3 (150-450); Red Blood Count 3.84 mil/mm3 (4.00-5.30); Red Cell Distribution Width 13.3 % (11.6-17.2); White Blood Count 5.5 th/mm3 (4.0-11.0)
[2018-11-06 07:03] LABS: Chloride 110 meq/L (98-107); Potassium 3.5 meq/L (3.5-5.1); Sodium 141 meq/L (136-145)
[2018-11-06 07:07] LABS: Calcium 8.1 mg/dL (8.5-10.1)
[2018-11-06 07:37] LABS: Alanine Aminotransferase 15 U/L (10-53); Alkaline Phosphatase 81 U/L (45-117); Anion Gap 7 meq/L (5-15); Aspartate Aminotransferase 12 U/L (15-37); Blood Urea Nitrogen 11 mg/dL (7-18); Glomerular Filtration Rate 72 mL/min (>89); Glucose,Random 102 mg/dL (74-106); Total Protein 5.7 g/dL (6.4-8.2)
[2018-11-06 07:38] LABS: Albumin 2.5 g/dL (3.4-5.0)
--- NOTE | 2018-11-06 08:23 | P.HPIM ---
History of Present Illness Primary Care Physician: Keegan Hansen MD Chief Complaint: cough History of Present Illness: patient is a 78 y/o female with history of atrial fibrillation and hypothyroidism who presented to ER with cough. she says that she started to cough about a week ago. she was prescribed some antibiotics last Tuesday which she took with no significant improvement.cough is minimally productive with no associated fever although she had some chills. she denies any abdominal pain but had some nausea and emesis.she says that today she's feeling a little better although still not quite well. Review of Systems Review of Systems: all other systems reviewed are negative [facility] Medical History Medical History AF (paroxysmal atrial fibrillation) (Acute) Asthma (Acute) CAD (coronary artery disease) (Acute) Hypertension (Acute) Hyperthyroidism (Acute) Pacemaker (Acute) Spinal stenosis (Acute) Tachy-brayden syndrome (Acute) Surgical History Surgical History S/P ablation of atrial fibrillation (Acute) Social History Social History Substance History: No History of Abuse Second Hand Smoke Exposure: No Smoking Status: Never smoker How Often Do You Have a Drink Containing Alcohol: Never Recent Travel in [facility] within the Last 8 Weeks: No Recent Out of Country Travel within the Last 8 Weeks: No Immunization History Tetanus Immunization: Unsure Medications and Allergies Allergies Allergy/AdvReac Type Severity Reaction Status Date / Time cephalexin Allergy Severe Nausea/Vomi Verified 11/05/18 19:21 ting Sulfa (Sulfonamide Allergy Severe rash Verified 11/05/18 19:21 Antibiotics) Home Medications Medication Instructions Recorded Confirmed Type apixaban [Eliquis] 5 mg PO BID 05/11/18 11/05/18 History diltiazem HCl 240 mg PO DAILY 05/11/18 11/05/18 History flecainide 50 mg PO Q12H 05/11/18 11/05/18 History levothyroxine [Synthroid] 88 mcg PO DAILY 05/11/18 11/05/18 History metoprolol succinate 50 mg PO DAILY 05/11/18 11/05/18 History pantoprazole 40 mg PO DAILY 05/11/18 11/05/18 History rosuvastatin [Crestor] 40 mg PO DAILY 05/11/18 11/05/18 History Active Medications: Active Medications Acetaminophen (Tylenol) 650 mg PO Q4H PRN PRN Reason: Temp > 100.4 Al Hydroxide/Mg Hydroxide (Milk Of Magnesia Liq) 30 ml PO Q12H PRN PRN Reason: Mild Constipation Bisacodyl (Dulcolax Supp) 10 mg RECTAL DAILY PRN PRN Reason: SEVERE CONSITIPATION Sodium Chloride (Ns Inj) 1,000 mls @ 100 mls/hr IV.CONT .Q10H CONRAD Last Infusion: 11/05/18 22:11 Dose: 100 mls/hr Lactulose (Lactulose Liq) 30 ml PO DAILY PRN PRN Reason: SEVERE CONSITIPATION Ondansetron HCl (Zofran Inj) 4 mg IV.PUSH Q6H PRN PRN Reason: NAUSEA OR VOMITING Prochlorperazine Edisylate (Compazine Inj) 10 mg IV.PUSH Q6H PRN PRN Reason: NAUSEA/VOMITING Senna/Docusate Sodium (Albertina-Colace) 1 tab PO BID CONRAD Sennosides (Senokot) 17.2 mg PO Q12H PRN PRN Reason: Moderate Constipation Sodium Chloride (Ns Flush) 2 ml IV.FLUSH PRN PRN PRN Reason: FLUSH AFTER USING IV ACCESS Sodium Chloride (Ns Flush) 2 ml IV.FLUSH BID CONRAD Sodium Chloride (Ns Flush) 2 ml IV.FLUSH PRN PRN PRN Reason: FLUSH AFTER USING IV ACCESS Physical Exam Vital signs: Last Vital Signs Temp 97.0 F L 11/06/18 04:53 Pulse 61 11/06/18 04:53 Resp 18 11/06/18 04:53 BP 138/69 11/06/18 04:53 Pulse Ox 94 L 11/06/18 04:53 Intake & Output 11/04/18 11/05/18 11/06/18 11/07/18 06:59 06:59 06:59 06:59 Intake Total 1000 / 1000 Balance 1000 / 1000 Weight 72.5 kg Constitutional no acute distress Routine HEENT Exam Eye: Present PERRL Routine Neck Exam Present supple Routine Respiratory Exam Present CTA bilaterally Routine Cardiovascular Exam Present RRR Routine Abdominal Exam Present soft Routine Extremities Exam Comments: no pedal edema. Routine Neurological Exam Present alert and oriented X3 Results Labs CBC & Chem 7: 11/06/18 06:33 11/06/18 06:33 Imaging Impressions Chest X-Ray 11/05/18 18:27 CONCLUSION: No acute cardiopulmonary disease identified. Head CT 11/05/18 18:27 CONCLUSION: No acute intracranial findings. . Caprini VTE Risk Assessment Caprini VTE Risk Assessment: Moderate/High Risk (score >= 2) Caprini Risk Assessment Model: Point Value = 1 Point Value = 2 Point Value = 3 Point Value = 5 Age 41-60 Minor surgery BMI > 25 kg/m2 Swollen legs Varicose veins or History of unexplained or recurrent spontaneous Oral contraceptives or hormone replacement Sepsis (< 1 month) Serious lung disease, including pneumonia (< 1 month) Abnormal pulmonary function Acute myocardial infarction Congestive heart failure (< 1 month) History of inflammatory bowel disease Medical patient at bed rest Age 61-74 Arthroscopic surgery Major open surgery (> 45 min) Laparoscopic surgery (> 45 min) Malignancy Confined to bed (> 72 hours) Immobilizing plaster cast Central venous access Age >= 75 History of VTE Family history of VTE Factor V Leiden Prothrombin [id number] Lupus anticoagulant Anticardiolipin antibodies Elevated serum homocysteine Heparin-induced thrombocytopenia Other congenital or acquired thrombophilia Stroke (< 1 month) Elective arthroplasty Hip, pelvis, or leg fracture Acute spinal cord injury (< 1 month) Prophylaxis Regimen: Total Risk Factor Score Risk Level Prophylaxis Regimen 0-1 Low Early ambulation 2 Moderate Order ONE of the following: *Sequential Compression Device (SCD) *Heparin 5000 units SQ BID 3-4 Higher Order ONE of the following medications: *Heparin 5000 units SQ TID *Enoxaparin/Lovenox 40 mg SQ daily (WT < 150 kg, CrCl > 30 mL/min) *Enoxaparin/Lovenox 30 mg SQ daily (WT < 150 kg, CrCl > 10-29 mL/min) *Enoxaparin/Lovenox 30 mg SQ BID (WT < 150 kg, CrCl > 30 mL/min) AND/OR *Sequential Compression Device (SCD) 5 or more Highest Order ONE of the following medications: *Heparin 5000 units SQ TID (Preferred with Epidurals) *Enoxaparin/Lovenox 40 mg SQ daily (WT < 150 kg, CrCl > 30 mL/min) *Enoxaparin/Lovenox 30 mg SQ daily (WT < 150 kg, CrCl > 10-29 mL/min) *Enoxaparin/Lovenox 30 mg SQ BID (WT < 150 kg, CrCl > 30 mL/min) AND *Sequential Compression Device (SCD) Assessment and Plan Plan A/P - acute bronchitis continue with supportive care with IV fluid, antipyretics and antitussives as needed. -atrial fibrillation/hypothyroidism resume home meds. -DVT prophylaxis; on Eliquis Discussed Condition With: the patient. Discharge Planning: home-tomorrow if stable. H&P: Quality VTE Deep Vein Thrombosis/Pulmonary Embolism Present on Admission: No
[2018-11-06] MEDS: dilTIAZem CD 240 MG Capsule PO SCH (09:44)
[2018-11-06] MEDS: Senna/Docusate Sodium 8.6/50 MG Tablet PO SCH ×2 (09:45→21:00)
[2018-11-06] MEDS: Levothyroxine 88 MCG Tablet PO SCH (09:48)
[2018-11-06] MEDS: Sod Chloride 0.9% Inj 1,000 ML IV.CONT SCH ×2 (09:53→18:35)
[2018-11-06] MEDS: Flecainide 100 MG Tablet PO SCH ×2 (11:44→21:00)
[2018-11-06] MEDS: guaiFENesin/Dextromethorphan 200 MG/20 MG 10 ML UDC PO PRN (13:08)
--- NOTE | 2018-11-06 21:15 | ECG ---
Date Performed: 11/05/2018 Time Performed: 18:35:52 PTAGE: 78 years EKG: ELECTRONIC ATRIAL PACEMAKER BORDERLINE LEFT AXIS DEVIATION MODERATE T-WAVE ABNORMALITY, CON [employer] ANTERIOR ISCHEMIA ABNORMAL ECG PREVIOUS TRACING : 05/11/2018 06.13 Since the previous tracing, no significant change noted DOCTOR: Bryson Russell Interpretating Date/Time 11/06/2018 21:13:58
[2018-11-07] MEDS: Sod Chloride 0.9% Inj 1,000 ML IV.CONT SCH ×2 (01:45→12:16)
[2018-11-07] MEDS: Levothyroxine 88 MCG Tablet PO SCH (05:29)
[2018-11-07] MEDS: dilTIAZem CD 240 MG Capsule PO SCH (09:11)
[2018-11-07] MEDS: Senna/Docusate Sodium 8.6/50 MG Tablet PO SCH ×2 (09:12→20:20)
[2018-11-07] MEDS: Flecainide 100 MG Tablet PO SCH ×2 (09:13→20:25)
--- NOTE | 2018-11-07 09:55 | P.PNIM ---
Subjective Interval history: in no acute distress. looks and feels better today. no fever. Physical Exam Vital signs: Last Vital Signs Temp 97.3 F L 11/07/18 08:00 Pulse 60 11/07/18 08:00 Resp 17 11/07/18 08:00 BP 194/92 H 11/07/18 08:00 Pulse Ox 98 11/07/18 08:00 Intake & Output 11/05/18 11/06/18 11/07/18 11/08/18 06:59 06:59 06:59 06:59 Intake Total 1000 / 1000 3000 / 3000 Balance 1000 / 1000 3000 / 3000 Weight 72.5 kg 72.3 kg Constitutional no acute distress Routine Respiratory Exam Present CTA bilaterally Routine Cardiovascular Exam Present RRR Routine Abdominal Exam Present soft Routine Extremities Exam Comments: no pedal edema. Routine Neurological Exam Present alert and oriented X3 Results Labs CBC & Chem 7: 11/06/18 06:33 11/06/18 06:33 Assessment and Plan Plan A/P - acute bronchitis- improving. -atrial fibrillation/hypothyroidism resumed home meds. -DVT prophylaxis; on Eliquis Discharge Planning: home-this afternoon if stable. f/u; pcp. see med list. d/w the patient and RN. Progress Note: Quality VTE Deep Vein Thrombosis/Pulmonary Embolism Present on Admission: No
[2018-11-07] MEDS ORDERED: Lisinopril 10 MG Tablet PO ONE (18:00)
[2018-11-07] MEDS: guaiFENesin/Dextromethorphan 200 MG/20 MG 10 ML UDC PO PRN (20:53)
[2018-11-08] MEDS: Levothyroxine 88 MCG Tablet PO SCH (05:20)
[2018-11-08] MEDS: Senna/Docusate Sodium 8.6/50 MG Tablet PO SCH (08:23)
[2018-11-08] MEDS: dilTIAZem CD 240 MG Capsule PO SCH (08:23)
[2018-11-08] MEDS: Flecainide 100 MG Tablet PO SCH (08:24)
--- NOTE | 2018-11-08 09:51 | P.PNIM ---
Subjective Interval history: in no acute distress. feels better today. diarrhea has resolved. BP trend noted. d/w the RN. Physical Exam Vital signs: Vital Signs 11/07/18 12:00 11/07/18 16:00 11/07/18 20:00 Temperature 97.0 F L 97.2 F L Pulse Rate 64 60 60 Respiratory Rate 16 16 18 Blood Pressure 183/84 H 182/83 H 184/80 H Pulse Oximetry 98 97 97 11/07/18 22:44 11/08/18 00:00 11/08/18 08:20 Temperature 96.3 F L Pulse Rate 78 60 Respiratory Rate 18 16 Blood Pressure 170/80 H 162/64 H 182/88 H Pulse Oximetry 95 94 L 11/08/18 09:24 Temperature Pulse Rate Respiratory Rate Blood Pressure 182/87 H Pulse Oximetry Intake & Output 11/07/18 11/08/18 11/08/18 18:59 06:59 18:59 Intake Total 2160 / 2160 90 / 90 Output Total 300 / 300 Balance 2160 / 2160 -210 / -210 Weight 74 kg Intake: IV 1200 / 1200 NS Inj 1,000 ML @ 100 mls/hr IV 1200 / 1200 .CONT .Q10H CONRAD Rx#:[id number] Oral 960 / 960 90 / 90 Output: Urine 300 / 300 Other: # Voids 5 Date of Last Bowel Movement 11/07/18 11/07/18 11/07/18 # Bowel Movements 0 Constitutional no acute distress Routine Respiratory Exam Present CTA bilaterally Routine Cardiovascular Exam Present RRR Routine Abdominal Exam Present soft Routine Extremities Exam Comments: no pedal edema. Routine Neurological Exam Present alert and oriented X3 Results Labs CBC & Chem 7: 11/06/18 06:33 11/06/18 06:33 Assessment and Plan Plan A/P - acute bronchitis- improving. -atrial fibrillation/hypothyroidism resumed home meds. -hypertension; on her home meds- one dose of captopril today. -diarrhea- has resolved. -DVT prophylaxis; on Eliquis Discharge Planning: home-this afternoon if stable with better BP control. f/u; pcp. see med list. d/w the patient and RN. Progress Note: Quality VTE Deep Vein Thrombosis/Pulmonary Embolism Present on Admission: No
--- NOTE | 2018-11-08 09:55 | P.DS ---
DS: Providers Date of admission: 11/05/18 21:05 Primary care physician: Keegan Hansen MD Brief History from admission: patient is a 78 y/o female with history of atrial fibrillation and hypothyroidism who presented to ER with cough. she says that she started to cough about a week ago. she was prescribed some antibiotics last Tuesday which she took with no significant improvement.cough is minimally productive with no associated fever although she had some chills. she denies any abdominal pain but had some nausea and emesis.she says that today she's feeling a little better although still not quite well. DS: Summary acute bronchitis- improving. -atrial fibrillation/hypothyroidism resumed home meds. -hypertension; on her home meds- one dose of captopril today. -diarrhea- has resolved. -DVT prophylaxis; on Eliquis Time Spent with Patient Total time spent providing and/or coordinating discharge services: Less than 30 minutes Quality: VTE Deep Vein Thrombosis/Pulmonary Embolism Present on Admission: No Exam Narrative Exam Narrative: patient is in no acute distress. abdomen is soft.bilateral air entry present on lung exam. S1/S2 heard- no pedal edema. Results Procedures completed during hospitalization: none. Impressions ITS Impressions Chest X-Ray 11/05/18 18:27 CONCLUSION: No acute cardiopulmonary disease identified. Head CT 11/05/18 18:27 CONCLUSION: No acute intracranial findings. . Discharge Plan Discharge Disposition Patient Disposition: 01 Discharge Home Discharge Condition Condition: Fair Discharge Order Discharge Orders: Discharge Order (Routine); Ordered 11/07/18 Ordered By: Jakob Villatoro Physicians Team Primary Care Provider: Keegan Hansen Attending Provider: Jakob Villatoro Rxs /Orders / Referrals /Forms Prescriptions: Continue diltiazem HCl 240 mg Capsule,Ext.Rel 24h Degradable 240 mg PO DAILY RF: 0 metoprolol succinate 50 mg Tablet Extended Release 24 Hr 50 mg PO DAILY RF: 0 levothyroxine [Synthroid] 88 mcg Tablet 88 mcg PO DAILY RF: 0 pantoprazole 40 mg Tablet,Delayed Release (Dr/Ec) 40 mg PO DAILY RF: 0 flecainide 50 mg Tablet 50 mg PO Q12H RF: 0 rosuvastatin [Crestor] 40 mg Tablet 40 mg PO DAILY RF: 0 apixaban [Eliquis] 5 mg Tablet 5 mg PO BID RF: 0 Referrals: Keegan Hansen MD [Primary Care Provider] - See Instructions Discharge Instructions Patient Printed Instructions: Dehydration (DC), Hematuria (GEN) Post Discharge Care Plan Care Plan Goals: Your Health Problems: Goals to Promote Your Health: * To prevent worsening of your condition * To maintain your health at the optimal level Directions to Meet Your Goals: * Take your medications as prescribed * Follow your dietary instruction * Follow activity as directed * Keep your appointments as scheduled * Take your immunizations and boosters as scheduled * If your symptoms worsen call your PCP * If no PCP go to Urgent Care or Emergency Room Smoking is dangerous to your health. Avoid second hand smoke. You may reach the 24-hour crisis hotline for domestic abuse at . Status ED Status: Left Department
[2018-11-08] MEDS ORDERED: Captopril 12.5 MG Tablet PO SCH (10:00)
[2018-11-08] MEDS ORDERED: Captopril 12.5 MG Tablet PO ONE (11:00)
== END 2018-11-08 14:40 | disposition home or self-care (01) ==
LOC: PHED 18:02 → PHEDA 18:02 → PH3 22:22
PROVIDERS: ADMIT Internal Medicine; ATTEND Internal Medicine
DX: E03.9 Hypothyroidism, unspecified; I25.10 Atherosclerotic heart disease of native coronary artery without angina pectoris; Z79.890 Hormone replacement therapy; Z88.1 Allergy status to other antibiotic agents; E05.90 Thyrotoxicosis, unspecified without thyrotoxic crisis or storm; J20.9 Acute bronchitis, unspecified; B34.9 Viral infection, unspecified; Z79.01 Long term (current) use of anticoagulants; I10 Essential (primary) hypertension; J45.909 Unspecified asthma, uncomplicated; Z90.710 Acquired absence of both cervix and uterus; I49.5 Sick sinus syndrome; E86.0 Dehydration; M48.00 Spinal stenosis, site unspecified; Z88.2 Allergy status to sulfonamides; I48.0 Paroxysmal atrial fibrillation
CPT/HCPCS: 70450; 71010; 71045; 80053; 81001; 82550; 82552; 83605; 83690; 83735; 84484; 85025; 87275; 87276; 87804; 90761; 90774; 90775; 93005; 96361; 96374; 96375; 96376; 99285; C8952; G0378; J2765; J7030